=== PATIENT | female | born 1950 | race Caucasian/White ===

== ENCOUNTER 2021-11-06 13:21 | Outpatient (CLI) | payer MEDICARE, SELFPAY ==
[2021-11-06 09:52] LABS: Albumin* 4.5 g/dL (3.3-5.0)
[2021-11-06 09:53] LABS: Chloride* 104 mmol/L (96-114); Sodium* 138 mmol/L (135-149)
[2021-11-06 09:55] LABS: Bilirubin Total* 0.8 mg/dL (0.1-1.5); Carbon Dioxide* 23 mmol/L (20-32); Cholesterol* 249 mg/dL (90-199); Creatinine* 0.8 mg/dL (0.5-1.5); Estimated Glomerular Filt Rate 79 ml/min; Total Protein* 7.2 g/dL (6.0-8.3)
[2021-11-06 09:56] LABS: Alanine Aminotransferase* 24 U/L (4-35); Alkaline Phosphatase* 78 U/L (40-150); Aspartate Amino Transferase* 22 U/L (12-35); Blood Urea Nitrogen* 17 mg/dL (7-30); Calcium* 10.2 mg/dL (8.4-10.6); Glucose* 114 mg/dL (60-115); HDL Cholesterol* 45 mg/dL (>=50); LDL Cholesterol Calculated 170 mg/dL (<100); Triglycerides* 172 mg/dL (40-149)
[2021-11-06 10:12] LABS: Vitamin D 25 Hydroxy* 58 ng/mL (30-80)
== END 2021-11-06 13:22 | disposition home or self-care (01) ==
PROVIDERS: PCP Family Medicine; Visit Provider Family Medicine
DX: E78.5 Hyperlipidemia, unspecified (principal); I10 Essential (primary) hypertension; M85.80 Other specified disorders of bone density and structure, unspecified site; R73.03 Prediabetes; E66.9 Obesity, unspecified
CPT/HCPCS: 80053; 80061; 82306

== ENCOUNTER 2021-12-29 13:00 | Outpatient (CLI) | payer MEDICARE, SELFPAY ==
--- OUTSIDE RECORDS SUMMARY | 2021-12-29 13:03 | XMS_ITS | Encounter Summary ---
:1950 Author Organization [facility] Address [address] [place] [address] Care Team Providers Name Role Phone Elsewhere, Pcp Primary Care Provider Unavailable Reason for Visit Appointment Request (Routine) - Closed Specialty Diagnoses / Procedures Referred By Contact Refer red To Contact Family Medicine Referral ID Status Reason Start Date Expiration Date Visits Requ ested Visits Authorized [id number] Closed 01/23/2018 01/23/2019 1 Encounter Details Date Type Department Care Team Description 02/02/2018 Nurse Only Department of Family Chayo Cesar, P.AKayleigh-CKayleigh [address] [place] [address] Medicine, [place] Jimi Gutierrez, L.P.N. [address] [place] [id number] Clinic, in [address] [phone] Social History Tobacco Use Types Packs/Day Years Used Date Smoking Tobacco: Never Smokeless Tobacco: Never Alcohol Habits Answer Date Recorded How often do you have a drink containing alcohol? Monthly or less 03/11/2020 How many drinks containing alcohol do you have on a Not aske d typical day when you are drinking? How often do you have six or more drinks on one Not asked occasion? Social Isolation Answer Date Recorded In a typical week, how many times do you More than three stacy es a week 03/11/2020 talk on the phone with family, friends, or neighbors? How often do you get together with friends Patient refused 03/11/2020 or relatives? How often do you attend jain or Patient refused 2020 yazidi services? Do you belong to any clubs or Patient refused 03/11/2020 organizations such as jain groups, unions, [employer] or athletic groups, or school groups? How often do you attend meetings of the Patient refused 03/11/2020 clubs or organizations you belong to? Are you now , , , Never 03/11/2020 , never or living with a partner? Stress Answer Date Recorded Do you feel stress - tense, restless, nervous, or To some ex tent 03/11/2020 anxious, or unable to sleep at night because your mind is troubled all the time - these days? Sex Assigned at Date Recorded Female 10/02/2021 8:58 AM CDT documented as of this encounter Procedure Notes Jimi Gutierrez, L.P.N. - 02/02/2018 1:30 PM CSTAssociated Order(s): SUTURE REMOVAL Post-Procedure Diagnose(s): Tumor Skin Uncertain Behavior Suture Removal Date/Time: 02/02/2018 1:09 PM Performed by: JIMI GUTIERREZ Authorized by: ANDREW CESAR Pre-procedure details: Sutures were placed at [facility] facility: yes Indicaton: scheduled suture removal Location: Lower extremity Lower extremity location: Foot Foot location: Right foot Procedure details: Wound appearance: No signs of infection Number of sutures removed: 2 Post-procedure details: Procedure completed successfully: yes Complications: no immediate complications Post-removal: Band-Aid applied T OF SALE ASSOCIATE documented in this encounter Plan of Treatment Not on filedocumented as of this encounter Procedures Procedure Name Priority Date/Time Associated Diagnosis Comme nts SUTURE REMOVAL Routine 02/02/2018 1:30 PM Tumor Skin Uncertain Results for this POINT OF SALE ASSOCIATE Behavior procedure are i n the results section . documented in this encounter Results SUTURE REMOVAL (02/02/2018 1:30 PM POINT OF SALE ASSOCIATE) Narrative [facility] - 02/02/2018 1:30 PM POINT OF SALE ASSOCIATE Jimi Gutierrez, L.P.N. ? 02/02/2018 ??1:15 PM Suture Removal Date/Time: 02/02/2018 1:09 PM Performed by: JIMI GUTIERREZ Authorized by: ANDREW CESAR Pre-procedure details: ??Sutures were placed at [facility]: yes ?Indicaton: scheduled suture removal ?Location: ??Lower extremity ??Lower extremity location: ??Foot ??Foot location: ??Right foot Procedure details: ??Wound appearance: ??No signs of infec tion ??Number of sutures removed: ??2 Post-procedure details: ??Procedure completed successfully: yes ?Complications: no immediate complicat ions ?Post-removal: ??Band-Aid applied Andrew Cesar P.A.-C. PROCEDURE/MINOR SURGICAL ORD ERABLES Performing Organization Address City/State/ZIP Code Phon e Number MMODAL MMODAL NA documented in this encounter Visit Diagnoses Diagnosis Tumor Skin Uncertain Behavior documented in this encounter Care Teams Industrial Renderer Relationship Specialty Start Date End Date Elsewhere, Pcp PCP - General Family Medicine 02/02/18 documented as of this encounter
--- OUTSIDE RECORDS SUMMARY | 2021-12-29 13:03 | XMS_ITS | Encounter Summary ---
:1950 Author Organization [facility] Address [address] [place] [address] Care Team Providers Name Role Phone Elsewhere, Pcp Primary Care Provider Unavailable Reason for Visit Reason Comments Skin Check Appointment Request (Routine) - Closed Specialty Diagnoses / Procedures Referred By Contact Refer red To Contact Dermatology Referral ID Status Reason Start Date Expiration Date Visits Requ ested Visits Authorized [id number] Closed 07/27/2021 07/27/2022 1 1 Encounter Details Date Type Department Care Team Description 10/06/2021 Office Visit Department of Enriqueta Yu, Keratosis Actinic (Primary Dx); Dermatology in [place] Tumor Skin Uncertain Behavior; [place], [place] [address] [facility] Nevi Multiple; [address] [place] [address] [place] [phone] Social History Tobacco Use Types Packs/Day Years [...] or relatives? How often do you attend mormonism or Patient refused 2020 sikh services? Do you belong to any clubs or Patient refused 03/11/2020 organizations such as mormonism groups, unions, fraternal or athletic groups, or school groups? How [...] troubled all the time - these days? Education Answer Date Recorded What is the highest level of school Master's degree (e.g., M A, MS, 03/11/2020 you have completed or the highest Albertina, MEd, ETHANOL OPERATOR, WILLIAM) degree you have received? Sex Assigned at Date Recorded Female 10/02/2021 8:58 AM CDT documented as of this encounter Progress Notes Enriqueta Yu M.D. - 10/06/2021 1:30 PM CDT SUBJECTIVE CHIEF COMPLAINT / REASON FOR VISIT Full skin cancer screening HISTORY OF PRESENT ILLNESS Zuleika Chand is a pleasant 70 y.o. female who presents for a full skin cancer screening. The patient was last seen by me in Dermatology clinic on 03/10/21. She denies a personal history of skin cancer or family history for melanoma. She uses sunscreen. She denies any new or changing lesions today. MEDICAL HISTORY Negative for skin cancer FAMILY HISTORY Negative for melanoma OBJECTIVE PHYSICAL EXAMINATION General: Awake, alert, in no acute distress, and with appropriate affect. Eyes: No scleral injection or icterus. No eyelid abnormalities. Lymph: No lower extremity edema. Skin: I have examined the scalp, face, neck, chest, abdomen, back, bilateral upper extremities, and bilateral lower extremities. My scribe (Nubia) served as a gas distribution plant operator for the entirety of the exam. Examination of the face, trunk and extremities reveals multiple benign-appearing nevi, lentigines and seborrheic keratoses. Examination of the left lower cheek reveals actinic keratoses x 2. Examination of the left upper cheek (mid) reveals a 8 x 5 mm erythematous scaly patch, rule out basal cell carcinoma vs squamous cell carcinoma. Examination of the left dorsal wrist reveals a 5.5 x 7.5 mm light-brown nevus with slight asymmetry and slight jagged borders. Examination of the right medial thigh reveals a small hemorrhagic crust. I recommend applying Vaseline. Follow up if not resolving. ASSESSMENT / PLAN #1 Left lower cheek: Actinic keratosis x 2 Given the precancerous nature of this lesion(s), treatment is medically indicated. After discussion of the risks, benefits and alternatives to treatment with cryotherapy, informed consent was obtained.We treated a total of two lesion(s) with two 10-second freeze-thaw cycles of liquid nitrogen cryotherapy. The patient tolerated the procedure well. Aftercare instructions were provided in written and verbal form to the patient. Should any of these lesions recur, the patient should return for biopsy orfurther evaluation. Follow up in 1-2 months for recheck if these areas do not complete resolve. #2 Left upper cheek (mid): Rule out basal cell carcinoma vs squamous cell carcinoma We recommend a shave biopsy of the left upper cheek (mid). Photograph taken today with patient's verbal consent. We will correspond as to the results and if any further treatment is needed. PROCEDURAL PAUSE: Procedural pause conducted to verify: correct patient identity, procedure to be performed, and as applicable, correct side and site, correct patient position, and availability of implants, special equipment or special requirements. PROCEDURE DETAILS: Shave biopsy. We explained the potential diagnosis and recommended that we obtain a biopsy. The risks and benefitsof the procedure were discussed, and the patient consented to these procedures. The patient denies any allergies to local anesthetics. Using 1% lidocaine with epinephrine for local anesthesia, a shave biopsy was obtained from the left upper cheek (mid). Biopsy submitted to Dermatopathology for H&E. Special stains will be performed as indicated. The bleeding was well controlled with application ofaluminum chloride. Dressing was applied, and wound care instructions were explained. Biopsy results and any further recommendations will be communicated to the patient by letter. Patient given [id number]. Discussed the risks, benefits, alternatives, and the necessity of other members of the healthcare team participating in the procedure. All questions answered and consent given. #3 Face, trunk and extremities: Multiple nevi and lentigines The ABCDE criteria for melanoma was reviewed with the patient. None of the patient's nevi reach the clinical threshold for biopsy. I recommend continued sun protection, self-skin examinations, and observation. Should any of the patient's nevi change in size, color, texture, or shape or develop symptoms such as itching or bleeding, I recommend an immediate return visit for reassessment. #4 Face, trunk and extremities: Seborrheic keratosis The benign nature of the skin lesion(s) was discussed with the patient. No treatment is required. I recommend continued observation. Should this lesion change in size, color, texture, or shape or develop symptoms such as itching or bleeding, I recommend an immediate return visit for reassessment. PATIENT EDUCATION: Ready to learn. No apparent learning barriers were identified. Learning preferences include listening. Explained diagnosis and treatment plan; patient/guardian of patient expressed understanding of thecontent. By signing my name below, I, Nubia Sterling, attest that this documentation has been prepared under the direction and in the presence of Enriqueta Yu M.D. Electronically Signed: patricio Crowder. 10/05/2021. 8:04 AM CDT. I, Enriqueta Yu M.D., personally performed the services described in this documentation. All medical record entries made by the scribe were at my direction and in my presence. I have reviewed the chart and discharge instructions (if applicable) and agree that the record reflects my personal performance and is accurate and complete. Enriqueta Yu M.D. documented in this encounter Miscellaneous Notes Result Encounter Note - Enriqueta Yu M.D. - 10/13/2021 12:16 PM CDT Left upper mid cheek: Actinic keratoses already treated letter [place] patient. Please send letter documented in this encounter Plan of Treatment Not on filedocumented as of this encounter Procedures Procedure Name Priority Date/Time Associated Comments Diagnosis DERMATOPATHOLOGY CONSULT Routine 10/06/2021 1:58 Tumor Skin Results for this PM CDT Uncertain Behavior procedure are in the results section. documented in this encounter Results Dermatopathology Consult (10/06/2021 1:58 PM CDT) Component Value Ref Test Analysis Performed At [facility] gist Range Method Time Signature 10/12/2021 [facility] 1:37 PM CDT Participated in Carloz Rojo 10/12/2021 [facility] the Interpretation [place] - 1:37 PM CDT Pathology Fellow Report Jasper Houston 10/12/2021 [facility] electronically [place] 1:37 PM CDT signed by Gross Description: Received in formalin labeled with the patient's name, 10/12/2021 [facility] medical record number, and left upper cheek-mid is a 0.6 1:37 PM CDT x 0.3 x 0.1 cm pale-warner skin shave biopsy. No discrete lesion is grossly identified on the skin surface. The specimen is submitted en toto in cassette A1. ??Grossed by AJB. Interpetation FINAL DIAGNOSIS 10/12/2021 [facility] A. ??DermPath Consult Wet Tissue; Left upper cheek, mid, 1:37 PM CDT Skin shave biopsy: ??Actinic keratosis Specimen (Source) Anatomical Collection Method Collection Time Re ceived Time Location / / Volume Laterality Skin (Left upper 10/06/2021 1:58 PM cheek) CDT Narrative This result has an attachment that is no t available. Enriqueta Yu M.D. LAB PATH DERM ORDERABLES Performing Organization Address City/State/ZIP Code Phon e Number [facility] - [address] [place], [place] [address] [place] [address] [facility] [address] documented in this encounter Visit Diagnoses Diagnosis Keratosis Actinic - Primary Tumor Skin Uncertain Behavior Nevi Multiple Keratosis Seborrheic documented in this encounter Care Teams Furnace Setter Relationship Specialty Start Date End Date Elsewhere, Pcp PCP - General Family Medicine 02/02/18 documented as of this encounter
--- OUTSIDE RECORDS SUMMARY | 2021-12-29 13:03 | XMS_ITS | Encounter Summary ---
:1950 Author Organization [facility] Address [address] [place] [address] Care Team Providers Name Role Phone Elsewhere, Pcp Primary Care Provider Unavailable Reason for Visit Reason Comments Follow-up Nevus left dorsal wrist, 6mo nth Encounter Details Date Type Department Care Team Description 03/10/2021 Office Visit Department of Enriqueta Yu, Keratosis Actinic (Primary Dx); Dermatology in [place] [address] [phone] Social History Tobacco Use Types Packs/Day Years [...] or relatives? How often do you attend pentecostal or Patient refused 2020 muslim services? Do you belong to any clubs or Patient refused 03/11/2020 organizations such as pentecostal groups, unions, fraternal or athletic groups, or [...] have completed or the highest Albertina, MEd, COOKIE BREAKER, WILLIAM) degree you have received? Sex Assigned at Date Recorded Female 10/02/2021 8:58 AM CDT documented as of this encounter Progress Notes Enriqueta Yu M.D. - 03/10/2021 1:15 PM CST SUBJECTIVE CHIEF COMPLAINT / REASON FOR VISIT Recheck nevus x 1 Lesion x 1 HISTORY OF PRESENT ILLNESS Zuleika Chand is a pleasant 70 y.o. female who presents for a recheck of a nevus involving the left dorsal wrist. The patient was last seen by me in Dermatology clinic on 08/26/20 for a full skin cancer screening. She denies a personal history of skin cancer or family history for melanoma. She uses haider nscreen. She would also like us to evaluate a lesion involving the cheek today. MEDICAL HISTORY Negative for skin cancer FAMILY HISTORY 1. Negative for melanoma 2. Probable non-melanoma skin cancer in mother OBJECTIVE PHYSICAL EXAMINATION General: Awake, alert, in no acute distress, and with appropriate affect. Skin: Limited skin exam done today. Examination of the right cheek reveals 3 actinic keratoses. Examination of the left dorsal wrist reveals a 5 x 8 mm light-brown nevus with slight asymmetry and slight jagged borders but looks benign on clinical exam and dermoscopy. Examination of the face reveals multiple benign appearing lentigines and a few seborrheic keratoses. ASSESSMENT / PLAN #1 Right cheek: Actinic keratosis x 3 Given the precancerous nature of this lesion(s), treatment is medically indicated. After discussion of the risks, benefits and alternatives to treatment with cryotherapy, informed consent was obtained.We treated a total of three lesion(s) with two 5-second freeze-thaw cycles of liquid nitrogen cryotherapy. The patient tolerated the procedure well. Aftercare instructions were provided in written and verbal form to the patient. Should any of these lesions recur, the patient should return for biopsy or further evaluation. Follow up in 1-2 months for recheck if these areas do not complete resolve. #2 Left dorsal wrist: Benign nevus The ABCDE criteria for melanoma was reviewed with the patient. This nevus does not reach the clinical threshold for biopsy. I discussed potential removal but because its near the bone and my low index of suspicion for this lesion being atypical, I discussed that I would prefer not to remove it. The patient is in agreement with this plan. I recommend continued sun protection, self-skin examinations, and observation. Should any of the patient's nevi change in size, color, texture, or shape or develop symptoms such as itching or bleeding, I recommend an immediate return visit for reassessment. Follow up in 6 months for a recheck of the stated lesion(s). #3 Face: Lentigines The benign nature of the skin lesion(s) was discussed with the patient. No treatment is required. I recommend continued observation. Should this lesion change in size, color, texture, or shape or develop symptoms such as itching or bleeding, I recommend an immediate return visit for reassessment. #4 Face: Seborrheic keratosis The benign nature of the [...] of thecontent. By signing my name below, Benedict, Nubia Sterling, attest that this documentation has been prepared under the direction and in the presence of Enriqueta Yu M.D. Electronically Signed: patricio Crowder. 03/10/2021. 1:27 PM LAB ASSISTANT. Enriqueta Mcmullen M.D., personally performed the services described in this documentation. All medical record entries made by the yueibe were at my direction and in my presence. I have reviewed the chart and discharge instructions (if applicable) and agree that the record reflects my personal performance and is accurate and complete. Enriqueta Yu M.D. Electronically Signed: patricio Crowder. 03/10/2021. 12:10 PM LAB ASSISTANT. I, Enriqueta Yu M.D., personally performed the services described in this documentation. All medical record entries made by the yueibe were at my direction and in my presence. I have reviewed the chart and discharge instructions (if applicable) and agree that the record reflects my personal performance and is accurate and complete. Enriqueta Yu M.D. ASSISTANT documented in this encounter Plan of Treatment Not on filedocumented as of this encounter Visit Diagnoses Diagnosis Keratosis Actinic - Primary Nevi Multiple documented in this encounter Care Teams Glue Machine Operator Relationship Specialty Start Date End Date Elsewhere, Pcp PCP - General Family Medicine 02/02/18 documented as of this encounter
--- OUTSIDE RECORDS SUMMARY | 2021-12-29 13:03 | XMS_ITS | Encounter Summary ---
:1950 Author Organization [facility] Address [address] [place] [address] Care Team Providers Name Role Phone Elsewhere, Pcp Primary Care Provider Unavailable Encounter Details Date Type Department Care Team Description 04/16/2020 Clinical Communication Department of [facility]te Yu, Medicine, [facility], in [address] [address] [place], [place] [phone] [address] (Work) [phone] Social History Tobacco Use Types Packs/Day Years [...] or relatives? How often do you attend methodist or Patient refused 2020 synagogue services? Do you belong to any clubs or Patient refused 03/11/2020 organizations such as methodist groups, unions, fraternal or athletic groups, or [...] have completed or the highest Albertina, MEd, CATTLE KILLER, WILLIAM) degree you have received? Sex Assigned at Date Recorded Female 10/02/2021 8:58 AM CDT documented as of this encounter Miscellaneous Notes Telephone Encounter - Hugo Aguilar L.P.N. - 04/16/2020 2:41 PM CST Call to patient. Confirmed will be due for skin check, short appointment in June. SMAKER OR TAILOR Telephone Encounter - Denise Lafleur - 04/16/2020 1:47 PM CST Reason for Communication: Pt called, she stated she is due for an appt with Dr Yu but is not sure if she needs short or long appt. Current Can Nursing/Provider leave a detailed message?: na Did the patient refuse triage through Nurse line? (for symptom based concerns): na Action Needed: Please check and call pt back Name of Medication (if relevant): SMAKER OR TAILOR documented in this encounter Plan of Treatment Not on filedocumented as of this encounter Visit Diagnoses Not on filedocumented in this encounter Care Teams Public Health Technologist Relationship Specialty Start Date End Date Elsewhere, Pcp PCP - General Family Medicine 02/02/18 documented as of this encounter
--- OUTSIDE RECORDS SUMMARY | 2021-12-29 13:03 | XMS_ITS | Encounter Summary ---
:1950 Author Organization [facility] Address [address] [place] [address] Care Team Providers Name Role Phone Elsewhere, Pcp Primary Care Provider Unavailable Reason for Visit Reason Comments Skin Check Appointment Request (Routine) - Closed Specialty Diagnoses / Procedures Referred By Contact Refer red To Contact Family Medicine Referral ID Status Reason Start Date Expiration Date Visits Requ ested Visits Authorized [id number] Closed 12/31/2019 12/30/2020 1 1 Encounter Details Date Type Department Care Team Description 03/11/2020 Office Visit Department of Enriqueta Yu, Keratosis Actinic (Primary Dx); Dermatology in [place] Keratosis Seborrheic; [place], [place] [address] [phone] Social History Tobacco Use Types Packs/Day Years [...] or relatives? How often do you attend jehovah's witness or Patient refused 2020 yarsanism services? Do you belong to any clubs or Patient refused 03/11/2020 organizations such as jehovah's witness groups, unions, fraternal or athletic groups, or [...] have completed or the highest Albertina, MEd, PATIENT SCHEDULING COORDINATOR, WILLIAM) degree you have received? Sex Assigned at Date Recorded Female 10/02/2021 8:58 AM CDT documented as of this encounter Progress Notes Enriqueta Yu M.D. - 03/11/2020 1:45 PM CST SUBJECTIVE CHIEF COMPLAINT / REASON FOR VISIT Recheck actinic keratosis HISTORY OF PRESENT ILLNESS Ms. Zuleika Chand is a 69 y.o. female who presents today for a recheck of actinic keratosis involving her face. The patient was last seen by me in Dermatology clinic on 07/02/2019 and at that time wetreated 7 AKs involving the face and forearm with cryotherapy. The patient denies a personal historyof skin cancer or family history for melanoma. Additionally, she would like an evaluation of a lesion involving her right azar. Allergies Allergen Reactions ??? Amoxicillin Other (see comments) MEDICAL HISTORY No history of skin cancer FAMILY HISTORY No family history for melanoma Probable non melanoma skin cancer in mother OBJECTIVE PHYSICAL EXAMINATION General: Awake, alert, in no acute distress, and with appropriate affect. Skin: Limited skin exam done today involving face, distal arms, hands. Examination today reveals a total of 5 AKs, includin involving the right arm, 2 involving the left distal arm, 1 involving the distal nasal bridge. Examination of the face, distal arms, and hands, reveals multiple benign appearing nevi and lentigines and seborrheic keratosis. Examination of the left dorsal wrist reveals a 5 x 8 mm brown macule with slight irregular borders compatible with a benign nevus. Examination of the right lateral azar reveals a SK vs LK. ASSESSMENT / PLAN #1 Right arm, left distal arm: Actinic keratosis x 5 lesions Given the precancerous nature of this lesion(s), treatment is medically indicated. After discussion of the risks, benefits and alternatives to treatment with cryotherapy, informed consent was obtained.We treated a total of 5 lesion(s) with two 10-second freeze-thaw cycles of liquid nitrogen cryotherapy. The patient tolerated the procedure well. Aftercare instructions were provided in written and verbal form to the patient. Should any of these lesions recur, the patient should return for biopsy or further evaluation. Discussed the risks, benefits, alternatives, and the necessity of other members ofthe healthcare team participating in the procedure. All questions answered and consent given. #2 Face, distal arms, hands: Benign appearing nevi and lentigines The ABCDE criteria for [...] return visit for reassessment. Follow up in 4months for a full skin cancer screening exam. #3 Face, distal arms, hands, right lateral azar: Seborrheic keratosis The benign nature of the skin lesion(s) was discussed with the patient. No treatment is required. I recommend continued observation. Should symptoms or changes develop related to this condition, I would recommend a return visit for reassessment. PATIENT EDUCATION: Ready to learn. No apparent learning barriers were identified. Learning preferences include listening. Explained diagnosis and treatment plan; patient/guardian of patient expressed understanding of thecontent. By signing my name below, I, Tracey Heredia, attest that this documentation has been prepared underthe direction and in the presence of Enriqueta Yu M.D. Electronically Signed: patricio Avina. 03/11/2020 Enriqueta Mcmullen M.D., personally performed the services described in this documentation. All medical record entries made by the scribe were at my direction and in my presence. I have reviewed the chart and discharge instructions (if applicable) and agree that the record reflects my personal performance and is accurate and complete. Enriqueta Yu M.D. 03/11 ESS FLOOR ATTENDANT documented in this encounter Plan of Treatment Not on filedocumented as of this encounter Visit Diagnoses Diagnosis Keratosis Actinic - Primary Keratosis Seborrheic Nevi Multiple documented in this encounter Care Teams Curing Pickling Packer Relationship Specialty Start Date End Date Elsewhere, Pcp PCP - General Family Medicine 02/02/18 documented as of this encounter
--- OUTSIDE RECORDS SUMMARY | 2021-12-29 13:03 | XMS_ITS | Encounter Summary ---
:1950 Author Organization [facility] Address [address] [place] [address] Care Team Providers Name Role Phone Unavailable Primary Care Provider Unavailable Encounter Details Date Type Department Care Team Description 01/23/2018 Ancillary Procedure Department of Dermatology Social History Tobacco Use Types Packs/Day Years [...] or relatives? How often do you attend islam or Patient refused 2020 mu-ism services? Do you belong to any clubs or Patient refused 03/11/2020 organizations such as islam groups, unions, fraternal or athletic groups, or [...] AM CDT documented as of this encounter Plan of Treatment Not on filedocumented as of this encounter Procedures Procedure Name Priority Date/Time Associated Comments Diagnosis DERMATOLOGY IMAGE Routine 01/23/2018 3:05 PM Resu lts for this EXAM COMMUNITY ADMINISTRATOR procedure are i n the results section. documented in this encounter Results DERMATOLOGY IMAGE EXAM (01/23/2018 3:05 PM COMMUNITY ADMINISTRATOR) Specimen (Source) Anatomical Collection Method Collection Time Re ceived Time Location / / Volume Laterality 01/23/2018 3:03 PM COMMUNITY ADMINISTRATOR Narrative [facility] - 01/23/2018 3:06 PM COMMUNITY ADMINISTRATOR This order has been created and auto-finalized to support the import of images acquired without order. The clini medina documentation to support these images can be found on the encounter santi t produced images. Provider Not In System IMG NON RAD IMAGING PROCEDUR ES Performing Organization Address City/State/ZIP Code Phon e Number [facility] NA documented in this encounter Visit Diagnoses Not on filedocumented in this encounter
--- OUTSIDE RECORDS SUMMARY | 2021-12-29 13:03 | XMS_ITS | Encounter Summary ---
:1950 Author Organization [facility] Address [address] [place] [id number] Care Team Providers Name Role Phone Elsewhere, Pcp Primary Care Provider Unavailable Reason for Referral Outpatient (Routine) - Closed Specialty Diagnoses / Procedures Referred By Contact Refer red To Contact Dermatology Enriqueta Yu M.D . [facility] [address] [place] [phone] Referral ID Status Reason Start Date Expiration Date Visits Requ ested Visits Authorized [id number] Closed 03/26/2019 03/25/2020 1 1 ANGI TRIBUNAL MEMBER Reason for Visit Reason Comments Follow-up Outpatient (Routine) - Closed Specialty Diagnoses / Procedures Referred By Contact Refer red To Contact Dermatology Enriqueta Yu M.D . [facility] [address] [place] [phone] Referral ID Status Reason Start Date Expiration Date Visits Requ ested Visits Authorized [id number] Closed 11/20/2018 11/20/2019 1 1 Encounter Details Date Type Department Care Team Description 03/26/2019 Office Visit Department of Enriqueta Yu (Primary Dx); Dermatology in [place] M.D. Keratosis Actinic; [place], [place] [address] [facility] Telangiectasia [address] [place] [phone] Social History Tobacco Use Types Packs/Day Years [...] or relatives? How often do you attend christianity or Patient refused 2020 hinduism services? Do you belong to any clubs or Patient refused 03/11/2020 organizations such as christianity groups, unions, fraternal or athletic groups, or [...] encounter Progress Notes Enriqueta Yu M.D. - 03/26/2019 1:30 PM CST SUBJECTIVE CHIEF COMPLAINT/REASON FOR VISIT Recheck lesion involving left dorsal wrist HISTORY OF PRESENT ILLNESS Zuleika Chand is a 68 y.o. female who presents for recheck of a lesion involving the left dorsal wrist. During our last visit on 11/20/18, the lesion was felt to be compatible with a benign-appearing nevus. The patient denies a personal history of skin cancer or family history for melanoma. Her father has had probable non-melanoma skin cancer. She uses sunscreen. She has concerns today for a few lesions involving the nose and left cheek. Allergies Allergen Reactions ??? Amoxicillin Other (see comments) MEDICAL HISTORY Negative for skin cancer FAMILY HISTORY 1. Negative for melanoma 2. Probable non-melanoma skin cancer in father OBJECTIVE PHYSICAL EXAMINATION General: Awake, alert, in no acute distress, and with appropriate affect. Skin: Examination of the left dorsal wrist reveals a 5.5 mm x 5 mm brown nevus with slight asymmetry. Examination of the left distal nasal bridge reveals some telangiectasia but no evidence for a lesion. Examination of the left cheek reveals actinic keratoses x2. Examination of the face reveals some benign- appearing nevi and lentigines. ASSESSMENT/PLAN #1 Left cheek: Actinic keratosis x2 ?? CONSENT Discussed the risks, benefits, alternatives, and the necessity of other members of the healthcare team participating in the procedure. All questions answered and consent given. ?? PROCEDURE INFORMATION Given the precancerous nature of this lesion(s), treatment is medically indicated. After discussion of the risks, benefits and alternatives to treatment with cryotherapy, informed consent was obtained.??We treated a total of 2 lesion(s) with two 5-10-second freeze-thaw cycles of liquid nitrogen cryothe rapy. The patient tolerated the procedure well. Aftercare instructions were provided in written and verbal form to the patient.??Should any of these lesions recur, the patient should return for biopsy or further evaluation. Follow up in 1-2 months for recheck if these areas do not complete resolve. #2 Face: Multiple nevi and lentigines The ABCDE criteria for melanoma was reviewed with the patient. None of the patient's nevi reach the clinical threshold for biopsy. We will monitor the lesion involving the left dorsal wrist. I recommend continued sun protection, self-skin examinations, and observation. Should any of the patient's nevichange in size, color, texture, or shape or develop symptoms such as itching or bleeding, I recommend an immediate return visit for reassessment. Follow up in 3-4 months for a recheck of the stated lesion as well as a full skin cancer screening, or immediately if any new or changing lesions are noted. #3 Left distal nasal bridge: Telangiectasia, no lesion present On clinical exam today, there is some telangiectasia involving the left distal nasal bridge but no evidence for a lesion. The benign nature of the condition(s) was discussed with the patient. No treatment is required. I recommend continued observation. Should symptoms or changes develop related to this condition, I would recommend a return visit for reassessment. PATIENT EDUCATION: Ready to learn. No apparent learning barriers were identified. Learning preferences include listening. Explained diagnosis and treatment plan; patient/guardian of patient expressed understanding of thecontent. By signing my name below, I, Eusebio Sibley, attest that this documentation has been prepared under thedirection and in the presence of Enriqueta Yu M.D. Electronically Signed: patricio Rosales. 03/26/2019. 1:42 PM WAITANGI TRIBUNAL MEMBER. I, Enriqueta Yu M.D., personally performed the services described in this documentation. All medical record entries made by the scribe were at my direction and in my presence. I have reviewed the chart and discharge instructions (if applicable) and agree that the record reflects my personal performance and is accurate and complete. Enriqueta Yu M.D. . 03/26/2019. 1:47 PM WAITANGI TRIBUNAL MEMBER. ANGI TRIBUNAL MEMBER documented in this encounter Plan of Treatment Scheduled Referrals Name Type Priority Associated Order Schedule Diagnoses Dermatology office Outpatient Referral Routine Ex pected: visit (clinic) 03/26/2019 (Approximate), Expires: 03/26/2022 documented as of this encounter Visit Diagnoses Diagnosis Nevi Multiple - Primary Keratosis Actinic Telangiectasia documented in this encounter Care Teams Impregnator Operator Relationship Specialty Start Date End Date Elsewhere, Pcp PCP - General Family Medicine 02/02/18 documented as of this encounter
--- OUTSIDE RECORDS SUMMARY | 2021-12-29 13:03 | XMS_ITS | Encounter Summary ---
:1950 Author Organization [facility] Address [address] [place] [address] Care Team Providers Name Role Phone Elsewhere, Pcp Primary Care Provider Unavailable Encounter Details Date Type Department Care Team Description 04/16/2020 Orders Only [facility] PCP [facility] Sa tomy Burns M.D. [address] [place], [place] [phone] (Wo rk) Social History Tobacco Use Types Packs/Day Years [...] attend jehovah's witness or Patient refused 2020 latter day services? Do you belong to any clubs [...] highest level of school Master's degree (e.g., Mick Unger, MS, 03/11/2020 you have completed or the highest Albertina, MEd, DIETARY DIRECTOR, WILLIAM) degree you have received? Sex Assigned at Date Recorded Female 10/02/2021 8:58 AM CDT documented as of this encounter Plan of Treatment Not on filedocumented as of this encounter Visit Diagnoses Not on filedocumented in this encounter Care Teams Billiard Player Relationship Specialty Start Date End Date Elsewhere, Pcp PCP - General Family Medicine 02/02/18 documented as of this encounter
--- OUTSIDE RECORDS SUMMARY | 2021-12-29 13:03 | XMS_ITS | Encounter Summary ---
:1950 Author Organization [facility] Address [address] [place] [address] Care Team Providers Name Role Phone Elsewhere, Pcp Primary Care Provider Unavailable Encounter Details Date Type Department Care Team Description 10/06/2021 Ancillary Procedure Department of Dermatology Social History [...] or relatives? How often do you attend episcopal or Patient refused 2020 hoahaoism services? Do you belong to any clubs or Patient refused 03/11/2020 organizations such as episcopal groups, unions, fraternal or athletic groups, or [...] level of school Master's degree (e.g., Mick Ugner, , 03/11/2020 you have completed or the highest Albertina, MEd, TUBE DRAWER, WILLIAM) degree you have received? Sex Assigned at Date Recorded Female 10/02/2021 8:58 AM CDT documented as of this encounter Plan of Treatment Not on filedocumented as of this encounter Procedures Procedure Name Priority Date/Time Associated Comments Diagnosis DERMATOLOGY IMAGE Routine 10/06/2021 2:03 PM Resu lts for this EXAM CDT procedure are i n the results section. documented in this encounter Results Cheek, left 11 13 25 27 37-Dermatology Image Exam (10/06/2021 2:03 PM CDT) Specimen (Source) Anatomical Collection Method Collection Time Re ceived Time Location / / Volume Laterality 10/06/2021 2:01 PM CDT Narrative [facility] - 10/06/2021 2:03 PM CDT This order has been created and auto-finalized [...] on filedocumented in this encounter Care Teams Yarder Puncher Relationship Specialty Start Date End Date Elsewhere, Pcp PCP - General Family Medicine 02/02/18 documented as of this encounter
--- OUTSIDE RECORDS SUMMARY | 2021-12-29 13:03 | XMS_ITS | Clinical Summary ---
:1950 Author Organization [facility] Address [address] [place] [address] Care Team Providers Name Role Phone Elsewhere, Pcp Primary Care Provider Unavailable Source Comments Patient records contain information from all sites at [facility]. For routine questions regarding patient records, call [phone] during business hours, M-F 8:00 AM - 5:00 PM Central Time. Record requests for emergency care only can be directed to [phone] at any time.[facility] Allergies Active Allergy Reactions Severity Noted Date Comments Amoxicillin Other (see comments) 04/14/2015 Animal Dander Other (see comments) 12/08/2020 Mold Headache 12/08/2020 Medications Medication Sig Dispensed Refills Start Date End Date Status calcitonin, salmon, 200 Units daily. 8 12/22/2017 Active (MIACALCIN) 200 unit/actuation nasal spray chlorthalidone Take 25 mg by 2 01/10/2018 Active (HYGROTEN) 25 mg tablet mouth every other day. omeprazole (PriLOSEC) 20 3 01/10/[address] capsule calcium carb/vit Take 1 tablet by 0 04/14/2015 Active D3/minerals mouth daily. (CALCIUM-VITAMIN D ORAL) multivitamin tablet Take 1 tablet by 0 Active mouth daily. lisinopril Take 20 mg by 2 04/13/2018 Acti ve (PRINIVIL,ZESTRIL) 20 mg mouth every tablet other day. co-enzyme Q-10 30 mg Take 30 mg by 0 Active capsule mouth daily. Encounters Date Type Specialty Care Team Description 10/06/2021 Ancillary Procedure 10/06/2021 Office Visit Dermatology Enriqueta Yu, Keratosis A ctinic (Primary Dx); M.D. Tumor Skin Unce rtain Behavior; Nevi Multiple; Keratosis Sebor rheic from Last 3 Months Immunizations Name Administration Dates Next Due H1N1 All Forms 03/11/2009 HZV (ZOSTAVAX) 02/17/2012 Influenza (IM) Preservative Free 01/04/2012, 12/02/2010 Influenza, Injectable, Quadrivalent 01/13/2016 Influenza, Seasonal, Injectable 12/21/2012 Influenza, Unspecified 10/30/2008 PCV13 11/04/2016 PPSV23 11/10/2017 RZV (SHINGRIX) 04/03/2018 Td (Adult), adsorbed 03/01/2002, 02/11/1993 Tdap 01/22/2011 influenza high dose (65 years or older) (PF) 12/13/2017, 12/2016 Family History Medical History Relation Name Comments Skin cancer Mother Relation Name Status Comments Mother Social History Tobacco Use Types Packs/Day Years [...] or relatives? How often do you attend synagogue or Patient refused 2020 holiness services? Do you belong to any clubs or Patient refused 03/11/2020 organizations such as synagogue groups, unions, fraternal or athletic groups, or [...] have completed or the highest Albertina, MEd, DENTISTRY TEACHER, WILLIAM) degree you have received? Sex Assigned at Date Recorded Female 10/02/2021 8:58 AM CDT Last Filed Vital Signs Vital Sign Reading Time Taken Comments Blood Pressure 122/60 11/05/2015 11:06 AM CDT Pulse - - Temperature - - Respiratory Rate - - Oxygen Saturation - - Inhaled Oxygen Concentration - - Weight 99.6 kg (219 lb 9.3 oz) 11/05/2015 11:06 AM CDT Height - - Body Mass Index - - Plan of Treatment Health Maintenance Due Date Last Done Comments Bone Density Scan (Osteoporosis 1950 Screen) CT Colonography 1950 Cologuard 1950 Colonoscopy 1950 Colorectal Cancer Screening 1950 Creatinine Level 1950 FIT 1950 Fasting Glucose for Diabetes 1950 Screening Hepatitis C Screening 1950 Mammogram 1950 Potassium Level 1950 Sodium Level 1950 Depression Screening (Annual 02/14/2021 PHQ-2) Influenza Vaccine (#1) 2021 12/19/2020, 11/21/2019, 11/16/2019, Additional history exists DTaP,Tdap,and Td Vaccines (3 - Td 06/22/2028 06/22/2018, , or Tdap) 03/01/2002, Additional history exists Pneumococcal vaccine (65+ years) Completed 11/10/2017, Zoster Vaccines Completed 06/22/2018, 04/03/2018, 02/17/2012 Fall Risk Screen (Annual) Completed 03/10/2021 COVID-19 Vaccine Completed 11/25/2021, 05/23/2021, 12/16/2020, Additional history exists Medical Devices Implanted Type Area Perforating Machine Operator Device Shelf Model / Identifier Expiration Serial / Date Lot Hip Implant Hip Implant Right: Hip Knee Implant Knee Implant Right: Knee Procedures Procedure Name Priority Date/Time Associated Comments Diagnosis DERMATOLOGY IMAGE EXAM Routine 10/06/2021 2:03 Re sults for this PM CDT procedure are i n the results section. DERMATOPATHOLOGY CONSULT Routine 10/06/2021 1:58 Tumor Skin Results for this PM CDT Uncertain Behavior procedure are in the results section. from Last 3 Months Results Cheek, left 11 13 25 27 [...] RAD IMAGING PROCEDUR ES Performing Organization Address City/State/[facility] Code Phon e Number [facility] NA Dermatopathology Consult (10/06/2021 1:58 PM CDT) Component Value Ref Test Analysis Performed At [facility] gist Range Method Time Signature 10/12/2021 PDR 1:37 PM CDT Participated in Carloz Rojo 10/12/2021 [place] the Interpretation Belkys - 1:37 PM CDT Pathology Fellow Report Jasper Neal. 10/12/2021 [place] electronically Belkys Quinn 1:37 PM CDT signed by Gross Description: Received in formalin labeled with the patient's name, 10/12/2021 [place] medical record number, and left upper cheek-mid is a 0.6 1:37 PM CDT x 0.3 x 0.1 cm pale-warner skin shave biopsy. No discrete lesion is grossly identified on the skin surface. The specimen is submitted en toto in cassette A1. ??Grossed by AJB. Interpetation FINAL DIAGNOSIS 10/12/2021 [facility] A. ??DermPath Consult Wet Tissue; Left upper [...] Organization Address City/State/ZIP Code Phon e Number [facility] - [address] [place], [place] [address] [place] [address] [facility] [address] from Last 3 Months Insurance Payer Benefit Plan / Subscriber ID Effective Dates Phone Addre ss Type Group [facility] [id number] 2018-Flory [phone] [address] [address] [facility] MEDICARE PLAN t [address] [facility] [phone] Care Teams Wind Turbine Service Technician Relationship Specialty Start Date End Date Elsewhere, Pcp PCP - General Family Medicine 02/02/18
--- OUTSIDE RECORDS SUMMARY | 2021-12-29 13:03 | XMS_ITS | Encounter Summary ---
:1950 Author Organization [facility] Address [address] [place] [id number] Care Team Providers Name Role Phone Elsewhere, Pcp Primary Care Provider Unavailable Reason for Referral Outpatient (Routine) - Closed Specialty Diagnoses / Procedures Referred By Contact Refer red To Contact Dermatology Enriqueta Yu M.D . [facility] Region [address] [place] [address] [phone] Referral ID Status Reason Start Date Expiration Date Visits Requ ested Visits Authorized [id number] Closed 07/24/2018 07/24/2019 1 1 Scheduling Instructions Recheck skin lesion involving right uppe r lateral nasal bridge in 3 months Reason for Visit Reason Comments Skin Check Outpatient (Routine) - Closed Specialty Diagnoses / Procedures Referred By Contact Refer red To Contact Dermatology Enriqueta Yu M.D . [facility] Region [address] [place] [address] [phone] Referral ID Status Reason Start Date Expiration Date Visits Requ ested Visits Authorized [id number] Closed 04/24/2018 04/24/2019 1 1 Encounter Details Date Type Department Care Team Description 07/24/2018 Office Visit Department of Enriqueta Yu Nevi Multi ple (Primary Dermatology in [place] ) [address] [phone] Social History Tobacco Use Types Packs/Day Years [...] or relatives? How often do you attend congregational or Patient refused 2020 jain services? Do you belong to any clubs or Patient refused 03/11/2020 organizations such as congregational groups, unions, fraternal or athletic groups, or [...] encounter Progress Notes Enriqueta Yu M.D. - 07/24/2018 1:15 PM CDT SUBJECTIVE CHIEF COMPLAINT/REASON FOR VISIT Recheck nevus involving left dorsal wrist HISTORY OF THE PRESENT ILLNESS Zuleika Chand is a pleasant 67 y.o. female who follows up for a recheck of a nevus involving the left dorsal wrist. During her last visit with me on 04/24/18, this nevus had slight asymmetry. Today, she reports that it has not changed. The patient denies a personal history for skin cancer or family history for melanoma. MEDICAL HISTORY No history of skin cancer ?? FAMILY HISTORY Mother has history for probable non-melanoma skin cancer OBJECTIVE PHYSICAL EXAMINATION General: Awake, alert, in no acute distress, and with appropriate affect. Skin: Examination of the left dorsal wrist reveals a 6 mm x 5 mm brown nevus with slight asymmetry that appears benign on clinical examination and dermoscopy. ASSESSMENT/PLAN #1 Left dorsal wrist: Benign nevus This lesion appears benign on clinical examination and dermoscopy. The ABCDE criteria for melanoma was reviewed with the patient. None of the patient's nevi reach the clinical threshold for biopsy. I recommend continued sun protection, self-skin examinations, and observation. Should any of the patient's nevi change in size, color, texture, or shape or develop symptoms such as itching or bleeding, I recommend an immediate return visit for reassessment. She will follow up for recheck of the nevus involving the left dorsal wrist and full skin cancer screening exam in October or November 2018. PATIENT EDUCATION: Ready to learn. No apparent learning barriers were identified. Learning preferences include listening. Explained diagnosis and treatment plan; patient/guardian of patient expressed understanding of thecontent. By signing my name below, I, Dalia Mccollum, attest that this documentation has been prepared under thedirection and in the presence of Enriqueta Yu M.D. Electronically Signed: patricio Connolly. 07/24/2018. 1:20 PM . I, Enriqueta Yu M.D., personally performed the services described in this documentation. All medical record entries made by the scribe were at my direction and in my presence. I have reviewed the chart and discharge instructions (if applicable) and agree that the record reflects my personal performance and is accurate and complete. Enriqueta Yu M.D. . 07/24/2018. 4:27 PM. documented in this encounter Plan of Treatment Scheduled Referrals Name Type Priority Associated Order Schedule Diagnoses Dermatology office Outpatient Referral Routine Ex pected: visit (clinic) 10/24/2018 (Approximate), Expires: 07/24/2021 documented as of this encounter Visit Diagnoses Diagnosis Nevi Multiple - Primary documented in this encounter Care Teams School Crossing Guard Relationship Specialty Start Date End Date Elsewhere, Pcp PCP - General Family Medicine 02/02/18 documented as of this encounter
--- OUTSIDE RECORDS SUMMARY | 2021-12-29 13:03 | XMS_ITS | Encounter Summary ---
:1950 Author Organization [facility] Address [address] [place] [address] Care Team Providers Name Role Phone Elsewhere, Pcp Primary Care Provider Unavailable Reason for Visit Reason Comments Skin Check Outpatient (Routine) - Closed Specialty Diagnoses / Procedures Referred By Contact Refer red To Contact Dermatology Enriqueta Yu M.D . [facility] Region [address] [place], [place] [phone] Referral ID Status Reason Start Date Expiration Date Visits Requ ested Visits Authorized [id number] Closed 05/20/2020 05/20/2021 1 1 Encounter Details Date Type Department Care Team Description 08/26/2020 Office Visit Department of Enriqueta Yu Nevi Multi ple (Primary Dx); Dermatology [place] Keratosis Seborrheic [place], [place] [address] [phone] Social History Tobacco Use Types Packs/Day Years [...] or relatives? How often do you attend muslim or Patient refused 2020 zoroastrianism services? Do you belong to any clubs or Patient refused 03/11/2020 organizations such as muslim groups, unions, fraternal or athletic groups, or [...] have completed or the highest Albertina, MEd, ENROBER, WILLIAM) degree you have received? Sex Assigned at Date Recorded Female 10/02/2021 8:58 AM CDT documented as of this encounter Progress Notes Enriqueta Yu M.D. - 08/26/2020 1:30 PM CDT SUBJECTIVE CHIEF COMPLAINT / REASON FOR VISIT Skin cancer screening exam HISTORY OF PRESENT ILLNESS Ms. Zuleika Chand is a 69 y.o. female who presents today for a full skin cancer screening examination. The patient was last seen by me in Dermatology clinic on 05/20/20. The patient denies a personal history of skin cancer or family history for melanoma. The patient denies any lesions of concern. Allergies Allergen Reactions ??? Amoxicillin Other (see [...] extremities, and bilateral lower extremities. My scribe Yvonne was present for the exam today. Examination of face, trunk, and extremities reveals multiple benign appearing nevi and lentigines, and multiple SKs. Nevi, dermal nevi, and lentigines involving the face. Examination of the left dorsal wrist reveals a 5 x 8 brown nevus with slight asymmetry and slight jagged borders but looks benign on clinical exam and dermoscopy. Examination today reveals no suspicious lesions for skin cancer. ASSESSMENT / PLAN #1 Face, trunk, and extremities: Multiple benign appearing nevi and lentigines The ABCDE criteria [...] return visit for reassessment. Follow up in 6months for a recheck of the nevus involving the left dorsal wrist. #2 Face, trunk, and extremities: Seborrheic keratosis The benign nature [...] Enriqueta Yu M.D. Electronically Signed: patricio Avina. Enriqueta Mcmullen M.D., personally performed the services described in this documentation. All medical record entries made by the scribe were at my direction and in my presence. I have reviewed the chart and discharge instructions (if applicable) and agree that the record reflects my personal performance and is accurate and complete. Enriqueta Yu M.D. documented in this encounter Plan of Treatment Not on filedocumented as of this encounter Visit Diagnoses Diagnosis Nevi Multiple - Primary Keratosis Seborrheic documented in this encounter Care Teams Vocational Rehabilitation Counselor Relationship Specialty Start Date End Date Elsewhere, Pcp PCP - General Family Medicine 02/02/18 documented as of this encounter
--- OUTSIDE RECORDS SUMMARY | 2021-12-29 13:03 | XMS_ITS | Encounter Summary ---
:1950 Author Organization [facility] Address [address] [place] [id number] Care Team Providers Name Role Phone Elsewhere, Pcp Primary Care Provider Unavailable Reason for Referral Outpatient (Routine) - Closed Specialty Diagnoses / Procedures Referred By Contact Refer red To Contact Dermatology Enriqueta Yu M.D . [facility] [address] [place] [address] [phone] Referral ID Status Reason Start Date Expiration Date Visits Requ ested Visits Authorized [id number] Closed 11/20/2018 11/20/2019 1 1 Reason for Visit Reason Comments Skin Check Outpatient (Routine) - Closed Specialty Diagnoses / Procedures Referred By Contact Refer red To Contact Dermatology Enriqueta Yu M.D . [facility] [address] [place] [address] [phone] Referral ID Status Reason Start Date Expiration Date Visits Requ ested Visits Authorized [id number] Closed 07/24/2018 07/24/2019 1 1 Encounter Details Date Type Department Care Team Description 11/20/2018 Office Visit Department of Enriqueta Yu Nevi Multi ple (Primary Dx); Dermatology in [place] Keratosis Seborrheienio; [place], [place] [address] [facility] Keratosis Seborrheic Inflamed [address] [place] [phone] Social History Tobacco Use Types Packs/Day Years [...] or relatives? How often do you attend mu-ism or Patient refused 2020 anglican services? Do you belong to any clubs or Patient refused 03/11/2020 organizations such as mu-ism groups, unions, fraternal or athletic groups, or [...] encounter Progress Notes Enriqueta Yu M.D. - 11/20/2018 3:00 PM CDT SUBJECTIVE CHIEF COMPLAINT/REASON FOR VISIT Full skin cancer screening HISTORY OF THE PRESENT ILLNESS Zuleika Chand is a pleasant 68 y.o. female who presents for a full skin cancer screening examination. We are following a lesion involving the left dorsal wrist felt to be a benign nevus. This lesion has not been changing. The patient denies a personal history of skin cancer or family history for melanoma. She uses sunscreen intermittently. No new or changing lesions are noted today. MEDICAL HISTORY Negative for skin cancer ?? FAMILY HISTORY Probable non-melanoma skin cancer in mother OBJECTIVE PHYSICAL EXAMINATION General: Awake, alert, in no acute distress, and with appropriate affect. Eyes: No scleral injection or icterus. No eyelid abnormalities. Lymph: No lower extremity edema. Skin: I have examined the scalp, face, neck, chest, abdomen, back, bilateral upper extremities, and bilateral lower extremities. Examination of the left dorsal wrist reveals a 6 mm x 5 mm brown nevus with slight asymmetry. Examination of the face reveals multiple benign-appearing nevi and lentigines. E xamination of right dorsal lateral foot reveals a 1-2 mm rough macule, likely representing a stucco keratosis versus irritated seborrheic keratosis (doubtful). Examination of the thighs reveals severalbenign-appearing nevi. Examination of the abdomen reveals a few angiomas. Examination of the anterior trunk reveals some seborrheic keratoses. Examination of the posterior legs reveals a few skin tags,nevi and lentigines. Examination of the back reveals a few skin tags, nevi and lentigines. Examination of the left medial foot, right heel and right lateral ankle reveals stucco keratoses. No suspicious lesions for skin cancer today. ASSESSMENT/PLAN #1 Right dorsal lateral foot: Irritated Stucco keratosis x1 CONSENT Discussed the risks, benefits, alternatives, and the necessity of other members of the healthcare team participating in the procedure. All questions answered and consent given. PROCEDURE INFORMATION After discussion of the risks, benefits and alternatives to treatment with cryotherapy, informed consent was obtained. We treated a total of 1 lesion(s) with two 98-31-lipthp freeze-thaw cycles of liquid nitrogen cryotherapy. The patient tolerated the procedure well. Aftercare instructions were provided in written and verbal form to the patient. Should any of these lesions recur, the patient should return for biopsy or further evaluation. Follow up in 1-2 months for recheck if these areas do not complete resolve. #2 Trunk and extremities: Multiple nevi and lentigines The ABCDE criteria for melanoma was reviewed with the patient. None of the patient's nevi reach the clinical threshold for biopsy. We will continue monitoring the lesion involving the left dorsal wrist. I recommend continued sun protection, self-skin examinations, and observation. Should any of the patient's nevi change in size, color, texture, or shape or develop symptoms such as itching or bleeding, I recommend an immediate return visit for reassessment. Follow up in 4 months for recheck of the stated lesion, or immediately if any new or changing lesions are noted. #3 Trunk and extremities: Seborrheic keratosis The benign nature of the skin lesion(s) was discussed with the patient. No treatment is required. I recommend continued observation. Should symptoms or changes develop related to this condition, I would recommend a return visit for reassessment. #4 Left medial foot, right heel and right lateral ankle: Stucco keratosis The benign nature of the skin [...] Enriqueta Yu M.D. Electronically Signed: patricio Rosales. 11/20/2018. 3:35 PM. I, Enriqueta Yu M.D., personally performed the services described in this documentation. All medical record entries made by the scribe were at my direction and in my presence. I have reviewed the chart and discharge instructions (if applicable) and agree that the record reflects my personal performance and is accurate and complete. Enriqueta Yu M.D. . 11/20/2018. 4:33 PM. documented in this encounter Plan of Treatment Scheduled Referrals Name Type Priority Associated Order Schedule Diagnoses Dermatology office Outpatient Referral Routine Ex pected: visit (clinic) 11/20/2018 (Approximate), Expires: 11/20/2021 documented as of this encounter Visit Diagnoses Diagnosis Nevi Multiple - Primary Keratosis Seborrheic Keratosis Seborrheic Inflamed documented in this encounter Care Teams Humanities Instructor Relationship Specialty Start Date End Date Elsewhere, Pcp PCP - General Family Medicine 02/02/18 documented as of this encounter
--- OUTSIDE RECORDS SUMMARY | 2021-12-29 13:03 | XMS_ITS | Encounter Summary ---
:1950 Author Organization [facility] Address [address] [place] [phone] Care Team Providers Name Role Phone Elsewhere, Pcp Primary Care Provider Unavailable Reason for Referral Outpatient (Routine) - Closed Specialty Diagnoses / Procedures Referred By Contact Refer red To Contact Dermatology Enriqueta Yu M.D . [facility] Region [address] [place] [address] [phone] Referral ID Status Reason Start Date Expiration Date Visits Requ ested Visits Authorized [id number] Closed 04/24/2018 04/24/2019 1 1 Scheduling Instructions Recheck nevus involving left dorsal wris t in 3 months Reason for Visit Reason Comments Skin Check Outpatient (Routine) - Closed Specialty Diagnoses / Procedures Referred By Contact Refer red To Contact Dermatology Enriqueta Yu M.D . [facility] Region [address] [place] [address] [phone] Referral ID Status Reason Start Date Expiration Date Visits Requ ested Visits Authorized [id number] Closed 01/23/2018 01/23/2019 1 1 Encounter Details Date Type Department Care Team Description 04/24/2018 Office Visit Department of Enriqueta Yu Nevi Multi ple (Primary Dx); Dermatology [place] Keratosis Seborrheic [place], [place] [address] [phone] Social History Tobacco Use Types Packs/Day Years [...] or relatives? How often do you attend scientology or Patient refused 2020 sabianist services? Do you belong to any clubs or Patient refused 03/11/2020 organizations such as scientology groups, unions, fraternal or athletic groups, or [...] encounter Progress Notes Enriqueta Yu M.D. - 04/24/2018 1:30 PM CDT CHIEF COMPLAINT Recheck actinic keratoses HISTORY OF THE PRESENT ILLNESS Zuleika Chand is a pleasant 67 y.o. female who follows up for recheck of actinic keratoses. Duringher most recent visit with me on 01/23/18, we treated one actinic keratosis with liquid nitrogen cryotherapy. At the visit, we also biopsied a lesion involving her right mid lateral foot that dermatopathology returned as benign fibrokeratoma. The patient denies a personal history for skin cancer or family history for melanoma. She does want to make sure that the biopsy site involving the right mid lateral foot has healed properly. PAST MEDICAL HISTORY No history of skin cancer FAMILY HISTORY Mother has history for probable non-melanoma skin cancer PHYSICAL EXAM General: Awake, alert, in no acute distress, and with appropriate affect. Skin: Examination of the cheeks reveals some benign nevi and lentigines. No actinic keratoses remaining. Examination of the forehead reveals some sebaceous hyperplasia. Examination of the left dorsal hand reveals some seborrheic keratoses, benign nevi and lentigines. Examination of the left dorsal wrist reveals a 5 mm x 5 mm brown nevus with slight asymmetry. Examination of the right mid lateral footreveals a shave biopsy site that has completely healed. No lesion or infection. Examination of the right distal anterior leg reveals a seborrheic keratosis. IMPRESSION AND PLAN #1 Multiple nevi The ABCDE criteria for melanoma was reviewed with the patient. None of the patient's nevi reach the clinical threshold for biopsy. We will continue to observe the nevus involving the left dorsal wrist.I recommend continued sun protection, self-skin examinations, and observation. Should any of the patient's nevi change in size, color, texture, or shape or develop symptoms such as itching or bleeding,I recommend an immediate return visit for reassessment. Otherwise, follow up in 3 months for recheckof the nevus involving the left dorsal wrist. #2 Face, hands, and legs: Seborrheic Keratosis The benign nature of the skin lesion(s) was discussed with the patient. No treatment is required. I recommend continued observation. Should symptoms or changes develop related to this condition, I would recommend a return visit for reassessment. PATIENT EDUCATION Ready to learn. No apparent learning barriers were identified. Learning preferences include listening. Explained diagnosis and treatment plan; patient/guardian of patient expressed understanding of thecontent. By signing my name below, Dalia Mcmullen, attest that this documentation has been prepared under thedirection and in the presence of Enriqueta Yu M.D. Electronically Signed: patricio Connolly. 04/24/2018. 1:32 PM . Enriqueta Mcmullen M.D., personally performed the services described in this documentation. All medical record entries made by the scribe were at my direction and in my presence. I have reviewed the chart and discharge instructions (if applicable) and agree that the record reflects my personal performance and is accurate and complete. Enriqueta Yu M.D. . 04/24/2018. 3:13 PM. documented in this encounter Plan of Treatment Scheduled Referrals Name Type Priority Associated Order Schedule Diagnoses Dermatology office Outpatient Referral Routine Ex pected: visit (clinic) 07/25/2018 (Approximate), Expires: 04/24/2021 documented as of this encounter Visit Diagnoses Diagnosis Nevi Multiple - Primary Keratosis Seborrheic documented in this encounter Care Teams Special Investigation Unit Investigator Relationship Specialty Start Date End Date Elsewhere, Pcp PCP - General Family Medicine 02/02/18 documented as of this encounter
--- OUTSIDE RECORDS SUMMARY | 2021-12-29 13:03 | XMS_ITS | Encounter Summary ---
:1950 Author Organization [facility] Address [address] [place] [address] Care Team Providers Name Role Phone Unavailable Primary Care Provider Unavailable Reason for Referral Outpatient (Routine) - Closed Specialty Diagnoses / Procedures Referred By Contact Refer red To Contact Dermatology Enriqueta Yu M.D . [facility] Region [address] [place] [address] Referral ID Status Reason Start Date Expiration Date Visits Requ ested Visits Authorized [id number] Closed 01/23/2018 01/23/2019 1 1 RONMENTAL SCIENCE PROGRAM DIRECTOR Reason for Visit Reason Comments Skin Check Appointment Request (Routine) - Closed Specialty Diagnoses / Procedures Referred By Contact Refer red To Contact Dermatology Referral ID Status Reason Start Date Expiration Date Visits Requ ested Visits Authorized [id number] Closed 11/03/2017 11/03/2018 1 Encounter Details Date Type Department Care Team Description 01/23/2018 Office Visit Department of Enriqueta Yu, Tumor Skin Uncertain Behavior (Primary Dx); Dermatology in [place] [facility] [place], [place] [address] [phone] Social History Tobacco Use Types Packs/Day Years [...] or relatives? How often do you attend caodaism or Patient refused 2020 religion services? Do you belong to any clubs or Patient refused 03/11/2020 organizations such as caodaism groups, unions, fraternal or athletic groups, or [...] encounter Progress Notes Enriqueta Yu M.D. - 01/23/2018 2:30 PM CST CHIEF COMPLAINT/REASON FOR VISIT Recheck of actinic keratosis involving the left lower lateral cheek HISTORY OF PRESENT ILLNESS Ms. Zuleika Chand is a 67 y.o. female who presents today for a recheck of an actinic keratosis involving the left lower lateral cheek. The patient denies a history of skin cancer and has no family history for melanoma. Today, the patient has additional concern for a lesion involving her right foot that has been present for a few weeks. She reports that it bled, and notes that it was painful and felt as if there was glass stuck in her foot. She does not recall any specific trauma to the right foot. Allergies not on file PAST MEDICAL HISTORY No history of skin cancer FAMILY HISTORY Mother has history for probable non-melanoma skin cancer No family history for melanoma PHYSICAL EXAM General: Awake, alert, in no acute distress, and with appropriate affect. Eyes: No scleral injection or icterus. No eyelid abnormalities. Lymph: No lower extremity edema. Skin: I have examined the scalp, face, neck, chest, abdomen, back, bilateral upper extremities, and bilateral lower extremities. Examination of the right upper forehead reveals an actinic keratosis. Examination of the right mid lateral foot reveals a 2.5 mm x 3.5 mm flesh-colored papule. Examination of the right lower azar reveals some seborrheic keratoses. IMPRESSION/REPORT/PLAN #1 Right dorsal lateral foot (right mid lateral foot): Irritated dermal nevus versus poroma We recommend a 5-mm punch biopsy of the right dorsal lateral foot (right mid lateral foot). Photograph taken today with patient's verbal consent. We will correspond as to the results and if any furthertreatment is needed. PROCEDURAL PAUSE Procedural pause conducted to verify: correct patient identity, procedure to be performed, and as applicable, correct side and site, correct patient position, and availability of implants, special equipment, or special requirements. PROCEDURE DETAILS Punch biopsy. We explained the potential diagnosis and recommended that we obtain a biopsy. The risks and benefitsof the procedure were discussed, and the patient consented to these procedures. The patient denies any allergies to local anesthetics. Using 1% lidocaine with epinephrine for local anesthesia, a 5-mm punch biopsy was obtained from the right dorsal lateral foot (right mid lateral foot). Biopsy submitted to Dermatopathology. Biopsy site closed with a top layer of two 4-0 nylon skin sutures. The skin sutures need to be removed in 10-14 days. Dressing was applied, and wound care instructions were explained. Biopsy results and any further recommendations will be communicated to the patient by letter. Patient given pamphlet [id number]. Discussed the risks, benefits, alternatives, and the necessity of other members of the healthcare team participating in the procedure. All questions answered and consent given. #2 Right upper forehead: Actinic keratosis CONSENT Discussed the risks, benefits, alternatives, and the necessity of other members of the healthcare team participating in the procedure. All questions answered and consent given. ?? PROCEDURE INFORMATION Given the precancerous nature of this lesion, treatment is medically indicated. After discussion of the risks, benefits and alternatives to treatment with cryotherapy, informed consent was obtained. Wetreated a total of one lesion with two 20-second freeze-thaw cycles of liquid nitrogen cryotherapy. The patient tolerated the procedure well. Aftercare instructions were provided in written and verbal form to the patient. Should any of these lesions recur, the patient should return for biopsy or further evaluation. Follow up in 1-2 months for recheck if these do not completely resolve. #3 Right lower azar: Seborrheic Keratosis The benign nature of the [...] and in the presence of Enriqueta Yu M.D.. Electronically Signed: patricio Soriano. 01/23/2018. 3:14 PM . IEnriqueta M.D., personally performed the services described in this documentation. All medical record entries made by the scribe were at my direction and in my presence. I have reviewed the chart and discharge instructions (if applicable) and agree that the record reflects my personal performance and is accurate and complete. Enriqueta Yu M.D. . 01/23/2018. 3:31 PM. RONMENTAL SCIENCE PROGRAM DIRECTOR Enriqueta Yu M.D. - 01/23/2018 2:30 PM CST b9 letter, [place] pt. RONMENTAL SCIENCE PROGRAM DIRECTOR documented in this encounter Miscellaneous Notes Addendum Note - Kerry Corcoran L.P.N. - 01/23/2018 2:30 PM ENVIRONMENTAL SCIENCE PROGRAM DIRECTOR Addended by: KERRY CORCORAN on: 02/01/2018 04:11 PM Modules accepted: Orders RONMENTAL SCIENCE PROGRAM DIRECTOR documented in this encounter Plan of Treatment Scheduled Orders Name Type Priority Associated Diagnoses Order S chedule Suture Removal Procedures Routine Tumor Skin Uncertain Expec renetta: 02/02/2018 Behavior (Approximate), Expires: 02/01/2021 Scheduled Referrals Name Type Priority Associated Order Schedule Diagnoses Dermatology office Outpatient Referral Routine Ex pected: visit (clinic) 04/23/2018 (Approximate), Expires: 01/23/2021 documented as of this encounter Procedures Procedure Name Priority Date/Time Associated Comments Diagnosis DERMATOPATHOLOGY CONSULT Routine 01/23/2018 4:07 Tumor Skin Results for this PM [facility] Uncertain Behavior procedure are in the results section. documented in this encounter Results Dermatopathology Consult (01/23/2018 4:07 PM ENVIRONMENTAL SCIENCE PROGRAM DIRECTOR) Component Value Ref Test Analysis Performed At [facility] gist Range Method Time Signature Gross Received in formalin labeled with the patient's name, 01/27/2018 [facility] Description: medical record number, and right dorsal lateral foot is a 4:28 PM LABORATORIES - 0.5 cm in average diameter pale warner skin punch biopsy [facility] excised to a depth 0.1 cm. ??There is a 0.4 x 0.4 cm pale [facility] hypopigmented raised lesion with well-defined borders centrally located on the skin surface. ??The specimen is bisected and submitted entirely in cassette A1. Grossed by ANGY. Participated in Teena Gonzales, 01/27/2018 [facility]-Pathology 4:28 PM LABORATORIES - Interpretation Fellow [facility] Report Alesia I. 01/27/2018 [facility] electronically Belkys Mars 4:28 PM LABORATORIE S - signed by [facility] 01/27/2018 [facility] 4:28 PM LABORATORIES - [facility] Interpetation FINAL DIAGNOSIS 01/27/2018 [facility]. ??DermPath Consult Wet Tissue; Right dorsal lateral alvin t, 4:28 PM LABORATORIES - Skin punch biopsy: ??Fibrokeratoma [facility] Clinical photo reviewed. Specimen Anatomical Collection Method Collection Time Receive d Time (Source) Location / / Volume Laterality Tissue 01/23/2018 4:07 PM 8 8:05 ENVIRONMENTAL SCIENCE PROGRAM DIRECTOR AM [facility] Narrative This result has an attachment that is no t available. Enriqueta Yu M.D. LAB PATH DERM ORDERABLES Performing Organization Address City/State/ZIP Code Phon e Number [facility]ORATORIES - [address] [place], [place] [address] [facility] documented in this encounter Visit Diagnoses Diagnosis Tumor Skin Uncertain Behavior - Primary Keratosis [facility] documented in this encounter Administered Medications Inactive Administered Medications - up to 3 most recent administrations Medication Order MAR Action Action Date Dose Rate Site lidocaine-EPINEPHrine 1 %-1:100,000 Given 01/23/2018 3:08 PM ENVIRONMENTAL SCIENCE PROGRAM DIRECTOR 2 mL injection 2 mL (XYLOCAINE W/EPI) 2 mL, infiltration, Once, On Tue01/23/18 at 1515, For 1 dose documented in this encounter
--- OUTSIDE RECORDS SUMMARY | 2021-12-29 13:03 | XMS_ITS | Encounter Summary ---
:1950 Author Organization [facility] Address [address] [place] [address] Care Team Providers Name Role Phone Elsewhere, Pcp Primary Care Provider Unavailable Reason for Visit Reason Comments Skin Check Outpatient (Routine) - Closed Specialty Diagnoses / Procedures Referred By Contact Refer red To Contact Dermatology Enriqueta Yu M.D . [facility] Region [address] [place], [place] [address] Referral ID Status Reason Start Date Expiration Date Visits Requ ested Visits Authorized [id number] Closed 03/26/2019 03/25/2020 1 1 Encounter Details Date Type Department Care Team Description 07/02/2019 Office Visit Department of Enriqueta Yu Nevi Multi ple (Primary Dx); Dermatology in [place] [facility]; [place], [place] [address] [facility] Keratosis Seborrheic Inflamed [address] [place] [phone] Social History Tobacco Use Types Packs/Day [...] or relatives? How often do you attend hinduism or Patient refused 2020 jain services? Do you belong to any clubs or Patient refused 03/11/2020 organizations such as hinduism groups, unions, fraternal or athletic groups, or [...] encounter Progress Notes Enriqueta Yu M.D. - 07/02/2019 1:30 PM CDT SUBJECTIVE CHIEF COMPLAINT / REASON FOR VISIT Skin cancer screening exam HISTORY OF PRESENT ILLNESS Ms. Zuleika Chand is a 68 y.o. female who presents today for a full skin cancer screening examination. The patient denies a personal history of skin cancer or family history for melanoma. The patientdenies any lesions of concern. She has had actinic keratoses treated in the past with liquid nitrogen. Allergies Allergen Reactions ??? Amoxicillin Other (see comments) MEDICAL HISTORY No history of skin cancer FAMILY HISTORY No family history for melanoma Probable nonmelanoma skin cancer in father OBJECTIVE PHYSICAL EXAMINATION General: Awake, alert, in no acute distress, and with appropriate affect. Eyes: No scleral injection or icterus. No eyelid abnormalities. Lymph: No lower extremity edema. Skin: I have examined the scalp, face, neck, chest, abdomen, back, bilateral upper extremities, and bilateral lower extremities. My nurse Kerry was in the room for the exam. She has 3 actinic keratoses involving the left cheek in 2 involving the right cheek as well as 2 involving the left forearm for atotal of 7 actinic keratoses. She has 1 irritated SK involving the left dorsal foot. Examination of her skin otherwise reveals benign nevi. No suspicious lesions for skin cancer today. ASSESSMENT / PLAN #1 Actinic keratosis CONSENT Discussed the risks, benefits, alternatives, and the necessity of other members of the healthcare team participating in the procedure. All questions answered and consent given. PROCEDURE INFORMATION Given the precancerous nature of this lesion(s), treatment is medically indicated. After discussion of the risks, benefits and alternatives to treatment with cryotherapy, informed consent was obtained.We treated a total of 7 lesion(s) with two 10-second freeze-thaw cycles of liquid nitrogen cryotherapy. The patient tolerated the procedure well. Aftercare instructions were provided in written and verbal form to the patient. Should any of these lesions recur, the patient should return for biopsy or further evaluation. #2 Seborrheic keratosis The benign nature of the skin lesion(s) was discussed with the patient. No treatment is required. I recommend continued observation. Should symptoms or changes develop related to this condition, I would recommend a return visit for reassessment. #3 Benign nevi The ABCDE criteria for melanoma was [...] patient/guardian of patient expressed understanding of thecontent. documented in this encounter Plan of Treatment Not on filedocumented as of this encounter Visit Diagnoses Diagnosis Nevi Multiple - Primary Keratosis Actinic Keratosis Seborrheic Inflamed documented in this encounter Care Teams Noodle Catalyst Maker Relationship Specialty Start Date End Date Elsewhere, Pcp PCP - General Family Medicine 02/02/18 documented as of this encounter
--- OUTSIDE RECORDS SUMMARY | 2021-12-29 13:04 | XMS_ITS | Encounter Summary ---
:1950 Author Organization [facility] Address [address] [place] [address] Care Team Providers Name Role Phone Unavailable Primary Care Provider Unavailable Encounter Details Date Type Department Care Team Description 04/14/2015 Hospital Encounter HX [facility] Contreras Zhang M.D. [address] [place] [address], [address] [place] [address] (Wo rk) Social History Tobacco Use Types Packs/Day Years Used Date Smoking Tobacco: Never Assessed Alcohol Habits Answer Date Recorded How often [...] or relatives? How often do you attend evangelical or Patient refused 2020 rastafarian services? Do you belong to any clubs or Patient refused 03/11/2020 organizations such as evangelical groups, unions, fraternal or athletic groups, or [...] AM CDT documented as of this encounter Last Filed Vital Signs Vital Sign Reading Time Taken Comments Blood Pressure 138/70 04/14/2015 1:39 PM GRAPHIC PRODUCTION ARTIST Pulse - - Temperature - - Respiratory Rate - - Oxygen Saturation - - Inhaled Oxygen Concentration - - Weight 97.2 kg (214 lb 4.6 oz) 04/14/2015 1:39 PM GRAPHIC PRODUCTION ARTIST Height - - Body Mass Index - - documented in this encounter Medications at Time of Discharge Medication Sig Dispensed Refills Start Date End Date calcium carb/vit Take 1 tablet by 0 04/14/2015 D3/minerals mouth daily. (CALCIUM-VITAMIN D ORAL) documented as of this encounter Procedure Notes Sohail Zhang M.D. - 04/14/2015 12:00 AM CST 1EMG EMG LITHOGRAPHIC RETOUCHER APPRENTICE Sohail Zhang MD ([phone]) REFERRED BY Dr. Mills REFERRED FOR Ms. Barclay is a pleasant 64-year-old female who had a right total hip arthroplasty performed on January 17, 2015. Following that, she has had weakness and paresthesias in the right lower extremity. Her weakness primarily involves the quadriceps and hip flexors, as well as she has been experiencing numbness in the medial aspect of the thigh and leg. SUMMARY Prior to starting the procedure, the patients identity was verified, pertinent available records were reviewed, the nature of the procedure was explained, the appropriate sites of the exam were confirmed directly with the patient, and a pre-procedure pause was performed for final verification of all of the above. Please see nerve conduction and needle electromyographic examination summary data scanned into medical record. Nerve conduction studies of the right lower extremity demonstrated a mildly decreased peroneal compound muscle action potential amplitude. F-waves were within estimates. Needle examination of the rightlower extremity showed marked fibrillation potentials and no activation of the rectus femorals, vastus medialis, vastus lateralis and fibrillation potentials with reduced recruitment in the iliopsoas. CLINICAL INTERPRETATION 1. 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 2. The mildly decreased peroneal compound muscle action potential amplitude is likely related to technical issues secondary to the patient's lower extremity edema and is of doubtful clinical significance. Sohail Zhang M.D./branden Electronically Signed By: SOHAIL ZHANG MD On: 04/15/2015 10:00 AM Modified by and Electronically Signed by: SOHAIL ZHANG MD On: 04/15/2015 10:00 AM Source: [facility] MHSDOLBEYNONRADSYS Document Id: [id number] HIC PRODUCTION ARTIST documented in this encounter Miscellaneous Notes Miscellaneous - Sohail Zhang M.D. - 04/14/2015 4:56 PM CST Ambulatory Patient Summary [address] [id number] Visit Information Name: DUNIA BARCLAY [facility] Number: [id number] Current Date: 04/14/2015 16:56:03 Physicians Attending Provider: SOHAIL ZHANG MD Primary Care Provider: PCP, DAMI BARCLAY DUNIA has been given the following list of follow-up instructions, medication list, and patient education materials: Follow-up Instructions Your Medications Here is a list of your medications. It is important to take your medications as directed. Use a pillbox or chart to help remind you to take your medications. Please let your doctor or nurse know if you have problems taking your medications. Medication/Strength How to Take Indications/Special Instructions/Comments/Notes for Patient Medication Changes/Routing calcium-vitamin D (Caltrate 600 + D) 1 Tablet(s), Oral, once a day chlorthalidone (chlorthalidone 25 mg oral tablet) 1 Tablet(s), Oral, once a day losartan (losartan 50 mg oral tablet) 1 Tablet(s), Oral, once a day lovastatin (lovastatin) Oral omeprazole (omeprazole) 20 mg, Oral, once a day Stop Taking the Following Medications: Medication list as of 04-14-15 16:56 Attention: If you have any medications at home that are not on this list, DO NOT take them until youcontact your provider for clarification. Give a copy of your medication list to your primary care provider. Update your medication list any time medications or doses are changed and carry your medication list at all times in case of emergency. Electronically Signed By: SOHAIL ZHANG MD Signed On:14-APR-2015 16:55:44 Your Allergies & Intolerances Substance Reaction Symptoms Category Comments amoxicillin Drug Your Problem List Problem Status Onset Comments No Problems found Your Upcoming Appointments Date Time Location Provider No Appointments found Attention: Contact your local Clinic if further appointment detail needed. Consider Using Patient Online Services Patient Online Services is a secure online and Mobile application that lets you: ?? View lab and test results ?? View portions of your medical record including clinical notes, immunizations and discharge summaries ?? Request an appointment or medication refill ?? Review your appointment schedule ?? Send secure messages to your care team Its easy to create an account if you dont have one. Go to [email or web address] and click on Create Your Account. Then, follow the directions to complete the online form. Youll be asked for your [facility] number which you can find at the top of this document. Your Goals/Additional instructions: Source: [facility] POWERCHART Document Id: [id number] HIC PRODUCTION ARTIST Miscellaneous - Sohail Zhang M.D. - 04/14/2015 4:56 PM CST Ambulatory Discharge Medication List [address] [id number] Visit Information Name: NINGDUNIA [facility] Number: [id number] Visit Date: 04/14/2015 16:56:03 Attending Provider: SOHAIL ZHANG MD Primary Care Provider: PCP, DAMI BARCLAYDUNIA has been given the following list of medications: Your Medications It is important to take your medications as directed. Use a pill box or chart to help remind you to take your medications. Please let your doctor or nurse know if you have problems taking your medications. Medication/Strength How to Take Indications/Special Instructions/Comments/Notes for Patient Medication Changes/Routing calcium-vitamin D (Caltrate 600 + D) 1 Tablet(s), Oral, once a day chlorthalidone (chlorthalidone 25 mg oral tablet) 1 Tablet(s), Oral, once a day losartan (losartan 50 mg oral tablet) 1 Tablet(s), Oral, once a day lovastatin (lovastatin) Oral omeprazole (omeprazole) 20 mg, Oral, once a day Stop Taking the Following Medications: Medication list as of 04-14-15 16:56 Attention: If you have any medications at home that are not on this list, DO NOT take them until youcontact your provider for clarification. Give a copy of your medication list to your primary care provider. Update your medication list any time medications or doses are changed and carry your medication list at all times in case of emergency. Electronically Signed By: SOHAIL ZHANG MD Signed On:14-APR-2015 16:55:44 Additional Information: Source: [facility] POWERCHART Document Id: [id number] HIC PRODUCTION ARTIST Miscellaneous - Geno Borja L.P.N. - 04/14/2015 1:39 PM CST Adult Bead Supervisor Intake/History Adult Bead Supervisor Intake/History Entered On: 04/14/2015 13:41 GRAPHIC PRODUCTION ARTIST Performed On: 04/14/2015 13:39 GRAPHIC PRODUCTION ARTIST by GENO BORJA LPN Intake Systolic Blood Pressure : 138 mmHg Diastolic Blood Pressure : 70 mmHg NIBP Mean : 93 mmHg BP Location : Left upper extremity Blood Pressure Cuff Size : Large Actual Weight : 97.2 kg(Converted to: 214 lb 5 oz) Dosing Weight Clinic : 97.2 kg GENO BORJA LPN - 04/14/2015 13:39 GRAPHIC PRODUCTION ARTIST General Info Languages : Persian Is Patient Female and 13-50 no hysterectomy : No GENO BORJA LPN - 04/14/2015 13:39 GRAPHIC PRODUCTION ARTIST Subjective Pain Symptoms : No GENO BORJA LPN - 04/14/2015 13:39 GRAPHIC PRODUCTION ARTIST Dependent Habits Exposure to Tobacco Smoke : Other: never Smoking Status : Never smoker Tobacco 2A : No Tobacco Use/Currently Using : No Tobacco Use/Last 30 Days : No Tobacco Use/Last 12 months : No GENO BORJA LPN - 04/14/2015 13:39 GRAPHIC PRODUCTION ARTIST Source: [facility] POWERCHART Document Id: [id number] GRAPHIC PRODUCTION ARTIST!21 HIC PRODUCTION ARTIST Telephone Encounter - Conversion, Historical Provider Ser - 04/11/2015 10:12 AM CST *Phone Message Document Contains Addenda Addendum by GENO BORJA LPN on 14 April 2015 10:47:56 GRAPHIC PRODUCTION ARTIST Spoke with patient. Addendum by RORO ESCAMILLA on 14 April 2015 10:10:29 GRAPHIC PRODUCTION ARTIST From: RORO ESCAMILLA ( Physical Medicine and Rehabilitation Staff) To: Physical Medicine and Rehabilitation Staff; Sent: 04/14/2015 10:10:29 GRAPHIC PRODUCTION ARTIST Subject: FW: *Phone Message Addendum by RORO ESCAMILLA on 14 April 2015 10:10:24 GRAPHIC PRODUCTION ARTIST Patient returned call. She has her phone closer now. Please try her again. Addendum by GENO BORJA LPN on 14 April 2015 10:01:17 GRAPHIC PRODUCTION ARTIST Left message for patient to return call. From: RORO ESCAMILLA ([facility] Mechanical Manager) To: Physical Medicine and Rehabilitation Staff; Sent: 04/11/2015 10:12:55 GRAPHIC PRODUCTION ARTIST Subject: *Phone Message Caller is: ( x ) Patient ( ) Mother ( ) Father ( ) Spouse ( ) Daughter ( ) Son ( ) Pharmacy ( ) Other: Physician: Patient MRN #: Reason for Call: Patient is wondering what medications are ok for her to take prior to her EMG on Tuesday with Dr. Zhang. She can be reached at [phone] Message: Advice/Action: Source used: ( ) Verbalizes understanding of instructions ( ) Instructed to call back if symptoms worsen or do not resolve ( ) Refused to see provider ( ) Appointment Scheduled ( ) OK to leave message on voice mail ( ) Patient told to expect return call: ( ) today ( ) tomorrow ( ) next work day ( ) Patient's email ( ) Patient told physician out of office, will call upon return call on ( ) ( ) Patient told physician out of office, routed to other physician ( ) Other ( ) Call back telephone number ( ) Call back cell phone number ( ) Source: [facility] Folloyu Document Id: [id number] documented in this encounter Plan of Treatment Not on filedocumented as of this encounter Visit Diagnoses Not on filedocumented in this encounter
--- OUTSIDE RECORDS SUMMARY | 2021-12-29 13:04 | XMS_ITS | Encounter Summary ---
:[address] [facility] Address [address] [place] [address] Care Team Providers Name Role Phone Unavailable Primary Care Provider Unavailable Encounter Details Date Type Department Care Team Description 07/30/2015 Hospital Encounter HX [facility]TR Contreras Zhang M.D. [address] [place] [address], [address] [place] [address] (Wo rk) Social History Tobacco [...] you attend muslim or Patient refused 2020 buddhism services? Do you belong to any clubs [...] Sign Reading Time Taken Comments Blood Pressure 118/68 07/30/2015 10:20 AM CDT Pulse - - Temperature - - Respiratory Rate - - Oxygen Saturation - - Inhaled Oxygen Concentration - - Weight 97.2 kg (214 lb 4.6 oz) 07/30/2015 10:20 AM CDT Height - - Body Mass Index - - documented in this encounter Medications at Time of Discharge Medication Sig Dispensed Refills Start Date End Date calcium carb/vit Take 1 tablet by 0 04/14/2015 D3/minerals mouth daily. (CALCIUM-VITAMIN D ORAL) documented as of this encounter Procedure Notes Sohail Zhang M.D. - 07/30/2015 12:00 AM CDT 1EMG EMG COMMISSION BROKER Sohail Zhang MD ([phone]) REFERRED BY Dr. Hardy Mills REFERRED FOR MsKayleigh Barclay is a very pleasant 64-year-old female who developed right lower extremity weakness following a total hip arthroplasty performed on January 17, 2015. 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 She is referred today for a limited evaluation for comparison purposes to the previous EMG that was performed on April 14, 2015. SUMMARY Prior to starting the procedure, the patients identity was verified, pertinent available records were reviewed, the nature of the procedure was explained, the appropriate sites of the exam were confirmed directly with the patient, and a pre-procedure pause was performed for final verification of all of the above. Please see nerve conduction and needle electromyographic examination summary data scanned into medical record. A previous electrodiagnostic study performed on 04/14/2015 was used for comparison purposes. Nerve conduction studies were not performed, as this study was performed specifically to re-evaluated the patient's known right femoral neuropathy. Needle examination of the right lower extremity showed fibrillation potentials and long duration complex motor unit potentials in the rectus femoris. There are fibrillation potentials and one long duration complex motor unit potential present in the vastus medialis. There are long duration motor unit potentials without fibrillation potentials in the iliopsoas. CLINICAL INTERPRETATION 1. 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 When compared to the previous electrodiagnostic study performed on 11/13/2015, there has been improvement in the femoral neuropathy with evidence of reinnervation now occurring primarily in the iliopsoas and rectus femoris. The most marked findings are now in the vastus medialis. Sohail Zhang M.D./branden Electronically Signed By: SOHAIL ZHANG MD On: 08/04/2015 09:18 AM Modified by and Electronically Signed by: SOHAIL ZHANG MD On: 08/04/2015 09:18 AM Source: [facility] MHSDOLBEYNONRADSYS Document Id: [id number] documented in this encounter Miscellaneous Notes Miscellaneous - Sohail Zhang M.D. - 07/30/2015 11:32 AM CDT Ambulatory Patient Summary [address] [id number] Visit Information Name: DUNIA BARCLAY [facility] Number: [id number] Current Date: 07/30/2015 11:32:25 Physicians Attending Provider: SOHAIL ZHANG MD Primary Care Provider: PCP, DAMI BARCLYA DUNIA has been given the following list [...] the Following Medications: Medication list as of 07-30-15 11:32 Attention: If you have any medications at [...] Electronically Signed By: SOHAIL ZHANG MD Signed On:30-JUL-2015 11:32:13 Your Allergies & Intolerances Substance Reaction Symptoms [...] if you dont have one. Go to [email or web address] and click on Create Your Account. Then, follow the directions to complete the online form. Youll be asked for your [facility] number which you can find at the top of this document. Your Goals/Additional instructions: Source: [facility] POWERCHART Document Id: [id number] Miscellaneous - Sohail Zhang M.D. - 07/30/2015 11:32 AM CDT Ambulatory Discharge Medication List [address] [id number] Visit Information Name: DUNIA BARCLAY [facility] Number: [id number] Visit Date: 07/30/2015 11:32:25 Attending Provider: SOHAIL ZHANG MD Primary Care Provider: PCP, DUNIA MARINA has been given the following list of [...] the Following Medications: Medication list as of 07-30-15 11:32 Attention: If you have any medications at [...] Electronically Signed By: SOHAIL ZHANG MD Signed On:30-JUL-2015 11:32:13 Additional Information: Source: [facility] POWERCHART Document Id: [id number] Miscellaneous - Rosmery Aleman, L.P.N. - 07/30/2015 10:20 AM CDT Adult Torpedo Shooter Intake/History Adult Torpedo Shooter Intake/History Entered On: 07/30/2015 10:22 CDT Performed On: 07/30/2015 10:20 CDT by ROSMERY ALEMAN LPN Intake Systolic Blood Pressure : 118 mmHg Diastolic Blood Pressure : 68 mmHg NIBP Mean : 85 mmHg BP Location : Right upper extremity Blood Pressure Cuff Size : Regular Actual Weight : 97.2 kg(Converted to: 214 lb 5 oz) Weight Source : Standing scale Dosing Weight Clinic : 97.2 kg ROSMERY ALEMAN LPN - 07/30/2015 10:20 CDT General Info Information Given By : Patient Languages : Kinyarwanda Is Patient Female and 13-50 no hysterectomy : ROSMERY Fitzpatrick [facility] - 07/30/2015 10:20 CDT Subjective Pain Symptoms : ROSMERY Fitzpatrick [facility] - 07/30/2015 10:20 CDT Dependent Habits Exposure to Tobacco Smoke : Other: never Smoking Status : Never smoker Tobacco 2A : No Tobacco Use/Currently Using : No Tobacco Use/Last 30 Days : No Tobacco Use/Last 12 months : ROSMERY Fitzpatrick [facility] - 07/30/2015 10:20 CDT Source: [facility] POWERLe[employer] Entertainment Document Id: [id number] CDT!23 documented in this encounter Plan of Treatment Not on filedocumented as of this encounter Visit Diagnoses Not on filedocumented in this encounter
--- OUTSIDE RECORDS SUMMARY | 2021-12-29 13:04 | XMS_ITS | Encounter Summary ---
:1950 Author Organization [facility] Address [address] [place] [address] Care Team Providers Name Role Phone Unavailable Primary Care Provider Unavailable Encounter Details Date Type Department Care Team Description 11/05/2015 Hospital Encounter HX [facility] PMTR Contreras Zhang M.D. [address] [place] [address], [address] [place] [address] (Wo rk) Social History Tobacco [...] or relatives? How often do you attend sabianism or Patient refused 2020 evangelical services? Do you belong to any clubs or Patient refused 03/11/2020 organizations such as sabianism groups, unions, fraternal or athletic groups, or [...] encounter Procedure Notes Sohail Zhang M.D. - 11/05/2015 12:00 AM CDT 1EMG EMG BONE DRIER Sohail Zhang MD ([phone]) REFERRED BY Dr. Hardy Mills REFERRED FOR Ms. Barclay is a very pleasant 65-year-old female who has a known right femoral neuropathy following a right total hip arthroplasty performed on January 17, 2015. She is referred today for additional electrodiagnostic evaluation of the right femoral neuropathy. SUMMARY Prior to starting the procedure, the patients identity was verified, pertinent available records were reviewed, the nature of the procedure was explained, the appropriate sites of the exam were confirmed directly with the patient, and a pre-procedure pause was performed for final verification of all of the above. Please see nerve conduction and needle electromyographic examination summary data scanned into medical record. Previous electrodiagnostic studies performed on April 05, 2015 and July 30, 2015 were used for comparison purposes. Nerve conduction studies were not performed, as this study was performed specifically to re-evaluate the patient's known right femoral neuropathy. Needle examination of the right lower extremity showed fibrillation potentials and long duration complex motor unit potentials in the rectus femoris and vastus medialis. There are long duration motor unit potentials without fibrillation potentials in the iliopsoas. CLINICAL INTERPRETATION 1. 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 Compared to the most recent electrodiagnostic study performed on July 30, 2015, there has been continued improvement in the femoral neuropathy with evidence of reinnervation of the iliopsoas, rectus femoris and vastus medialis. The most marked findings continue to be in the vastus medialis, but the findings in the vastus medialis have improved as evidenced by less fibrillation potentials and evidence of more reinnervation occurring in the vastus medialis on today's study as compared to the most recent study performed on July 29 6. Sohail Zhang M.D./branden Electronically Signed By: SOHAIL ZHANG MD On: 11/17/2015 02:18 PM Modified by and Electronically Signed by: SOHAIL ZHANG MD On: 11/17/2015 02:18 PM Source: [facility] MHSDOLBEYNONRADSYS Document Id: [id number] documented in this encounter Miscellaneous Notes Telephone Encounter - Conversion, Historical Provider Ser - 11/11/2015 10:36 AM CDT *Phone Message Document Contains Addenda Addendum by ZOILA BORJA LPN on November 11, 2015 14:16:09 CDT Faxed From: ANN MARIE JAMES ( [employer]) To: Physical Medicine and Rehabilitation Staff; Sent: 11/11/2015 10:36:31 CDT Subject: *Phone Message Caller is: ( ) Patient ( ) Mother ( ) Father ( ) Spouse ( ) Daughter ( ) Son ( ) [facility] ErOsqzmdkjqp-[phone] ) Other: Physician: Vicente Patient MRN #: Reason for Call: Message: Ashanti is calling for results. Please call her back, thank you. Advice/Action: Source used: ( ) Verbalizes understanding [...] back cell phone number ( ) Source: [facility] POWERCHART Document Id: [id number] Miscellaneous - Sohail Zhang M.D. - 11/05/2015 1:07 PM CDT Ambulatory Patient Summary [address] [id number] Visit Information Name: NINGWILFREDEN [facility] Number: [id number] Current Date: 11/05/2015 13:07:07 Physicians Attending Provider: SOHAIL ZHANG MD Primary [...] the Following Medications: Medication list as of 11-05-15 13:07 Attention: If you have any medications at [...] Electronically Signed By: SOHAIL ZHANG MD Signed On:05-NOV-2015 11:57:39 Your Allergies & Intolerances Substance Reaction Symptoms [...] if you dont have one. Go to [email or web address] and click on Create Your Account. Then, follow the directions to complete the online form. Youll be asked for your [facility] number which you can find at the top of this document. Your Goals/Additional instructions: Source: [facility] POWERCHART Document Id: [id number] Miscellaneous - Sohail Zhang M.D. - 11/05/2015 1:07 PM CDT Ambulatory Discharge Medication List [address] [id number] Visit Information Name: NINGDUNIA [facility] Number: [id number] Visit Date: 11/05/2015 13:07:06 Attending Provider: SOHAIL ZHANG MD Primary Care Provider: PCP, ELSEWHERE NINGDUNIA has been given the following list of [...] the Following Medications: Medication list as of 11-05-15 13:07 Attention: If you have any medications at [...] Electronically Signed By: SOHAIL ZHANG MD Signed On:05-NOV-2015 11:57:39 Additional Information: Source: [facility] Tapru Document Id: [id number] Miscellaneous - Rosmery Aleman, LKayleighP.N. - 11/05/2015 11:06 AM CDT Adult Tierce Filler Intake/History Adult Tierce Filler Intake/History Entered On: 11/05/2015 11:09 CDT Performed On: 11/05/2015 11:06 CDT by ROSMERY ALEMAN LPN Intake Systolic Blood Pressure : 122 mmHg Diastolic Blood Pressure : 60 mmHg NIBP Mean : 81 mmHg BP Location : Right upper extremity Blood Pressure Cuff Size : Regular Actual Weight : 99.6 kg(Converted to: 219 lb 9 oz) Weight Source : Standing scale Dosing Weight Clinic : 99.6 kg ROSMERY ALEMAN LPN - 11/05/2015 11:06 CDT General Info Information Given By : Patient Languages : Thai Is Patient Female and 13-50 no hysterectomy : ROSMERY Fitzpatrick LPN - 11/05/2015 11:06 CDT Subjective Pain Symptoms : ROSMERY Fitzpatrick LPN - 11/05/2015 11:06 CDT Dependent Habits Exposure to Tobacco Smoke : Other: never Smoking Status : Never smoker Tobacco 2A : No Tobacco Use/Currently Using : No Tobacco Use/Last 30 Days : No Tobacco Use/Last 12 months : ROSMERY Fitzpatrick LPN - 11/05/2015 11:06 CDT [facility] Data[facility]ART Document Id: [id number] CDT!23 documented in this encounter Plan of Treatment Not on filedocumented as of this encounter Visit Diagnoses Not on filedocumented in this encounter
--- OUTSIDE RECORDS SUMMARY | 2021-12-29 13:04 | XMS_ITS | Clinical Summary ---
:1950 Author Organization [facility] [place] [address] Care Team Providers Name Role Phone Lyndsay Ashby MD Primary Care Provider [phone] Allergies Active Allergy Reactions Severity Noted Date Comments Amoxicillin Rash 04/14/2015 Animal Dander Runny Nose 12/08/2020 Mold Headache 12/08/2020 Medications Medication Sig Dispensed Refills Start Date End Date Status chlorthalidone Take 12.5-25 mg 2 10/26/2018 Active (HYGROTON) 25 mg tablet by mouth once daily. lisinopril (PRINIVIL; Take 20 mg by 2 10/12/2018 Active ZESTRIL) 20 mg tablet mouth once daily. omeprazole (PRILOSEC) 20 Take 20 mg by 3 09/23/2018 Active mg Delayed-Release mouth once daily capsule if needed. calcitonin salmon, 200 Inhale 1 [place] 8 11/13/2018 Active units per actuation, in the nasal (MIACALCIN, nostril(s) once FORTICAL) 200 daily. unit/actuation nasal spray multivit-minerals/folic Take 1 Tab by 0 04/14/2015 Active acid (DAILY GUMMIES mouth once ORAL) daily. multivitamin (MVI) Take 1 Tablet by 0 Active tablet mouth once daily. coenzyme q10 30 mg Take 30 mg by 0 Active capsule mouth. calcium 0 Active carbonate/vitamin D3 (CALTRATE 600 PLUS D ORAL) methylPREDNISolone Take by mouth as 21 Tablet 0 03/11/2021 Active (Medrol, Grzegorz,) 4 mg instructed per tabletIndications: DDD packaging. (degenerative disc disease), lumbar, Lumbar radiculopathy, Weakness of right hip rosuvastatin (CRESTOR) 5 take 1 tablet by 0 04/11/19 22 Active mg tablet mouth once every 3 days Active Problems No known active problems Family History Medical History Relation Name Comments Skin cancer Mother Relation Name Status Comments Mother Alive Social History Tobacco Use Types Packs/Day Years Used Date Never Smoker Smokeless Tobacco: Never Used Tobacco Cessation: Counseling Given: Yes Alcohol Use Standard Drinks/Week Comments Yes 0 (1 standard drink = 0.6 oz pure alcoho l) occas Alcohol Habits Answer Date Recorded How often do you have a drink containing alcohol? Not asked How many drinks containing alcohol do you have on a typical Not asked day when you are drinking? How often do you have six or more drinks on one occasion? No t asked Comment: occas 12/08/2020 Sex Assigned at Date Recorded Not on file Obstetrics History Last Filed Vital Signs Vital Sign Reading Time Taken Comments Blood Pressure 129/70 05/11/2021 10:05 AM CDT Pulse 64 05/11/2021 10:05 AM CDT Temperature 36.7 ??C (98.1 ??F) 05/11/2021 10:05 AM CDT Respiratory Rate - - Oxygen Saturation 97% 05/11/2021 10:05 AM CDT Inhaled Oxygen Concentration - - Weight 103.6 kg (228 lb 6.4 oz) 05/11/2021 10:05 AM wit h shoes CDT Height - - Body Mass Index - - Plan of Treatment Health Maintenance Due Date Last Done Comments Tdap 10/20/1962 Depression screening for age 12+ 1963 BMI (ht and wt on same day) for age 0910/20/1969 18+ Hepatitis C screening for age 18-79 10/20/1969 Tetanus booster 1971 Colonoscopy through age 75 10/20/1996 Lipids for age 45-75 10/20/1996 Mammogram for age 45-75 10/20/1996 Zoster (shingles) series for age 50+ 10/20/2001 (1 of 2) DEXA/DXA scan for age 65+ 10/20/2016 Medicare Wellness for age 65+ 10/20/2016 Pneumococcal series for age 65+ (1 - 10/20/2016 PCV) COVID-19 vaccine series (4 - Booster 02/10/2021 12/16/2020, 05/15/2020, for Moderna series) 04/17/2020 Influenza for age 65+ 10/15/2021 Results Not on filefrom Last 3 Months Insurance Payer Benefit Plan / Subscriber ID Effective Dates Phone Addre ss Type Group BLUE CROSS BLUE CROSS [id number] 2018-Present [address] MR MEDICARE [facility] [place] [id number] Care Teams Grey Roll Man Relationship Specialty Start Date End Date Lyndsay Ashby MD PCP - General Family Practice 05/11/211999 [place] [address]
--- NOTE | 2021-12-29 13:20 | CRLHL7_ITS ---
For Patients: As a result of the Cures Act, medical imaging exams and procedure reports are released immediately into your electronic medical record. You may view this report before your referring provider. If you have questions, please contact your health care provider. BILATERAL SCREENING MAMMOGRAM WITH COMPUTER-AIDED DETECTION AND TOMOSYNTHESIS TECHNIQUE: CC and MLO views were obtained. These mammographic images have been obtained using full-field digital technique. These mammographic images were interpreted with the benefit of computer-aided detection. Breast Tomosynthesis was used in this interpretation. COMPARISON FILM: 10/16/20, 07/20/19, 06/15/18. FINDINGS: There are scattered areas of fibroglandular density IMPRESSION: There is no radiographic evidence for malignancy. ASSESSMENT: BI-RADS Category 2: Benign RECOMMENDATION: Routine screening mammogram in 1 year. A lay language report of this examination will be provided to the patient. Kunal Bsuh M.D. Diagnostic Radiologist [email or web address] DONOVAN/ale Transcribed: 7:55 p.m. BENJI/Dictated by: Kunal Bush MD @ 12/30/2021 10:33:00 AM (Electronically Signed)
== END 2021-12-29 13:01 | disposition home or self-care (01) ==
LOC: MAMMO 13:01
PROVIDERS: PCP Family Medicine; Visit Provider Family Medicine
DX: Z12.31 Encounter for screening mammogram for malignant neoplasm of breast (principal)
CPT/HCPCS: 77063; 77067

== ENCOUNTER 2022-09-20 16:21 | Outpatient (CLI) | payer MEDICARE, SELFPAY | END 2022-09-20 16:22 | disposition home or self-care (01) | LOC: AMB 10-03 13:22 | PROVIDERS: PCP Family Medicine; Visit Provider Family Medicine | DX: R53.1 Weakness (principal) | CPT/HCPCS: A0998 ==

== ENCOUNTER 2022-11-22 08:18 | Outpatient (CLI) | payer MEDICARE, SELFPAY | END 2022-11-22 08:19 | disposition home or self-care (01) | LOC: NFLDREF 11-23 02:12 | PROVIDERS: PCP Family Medicine; Referring Provider Family Medicine; Visit Provider Family Medicine | DX: E78.5 Hyperlipidemia, unspecified (principal); R73.03 Prediabetes; I10 Essential (primary) hypertension; M85.80 Other specified disorders of bone density and structure, unspecified site | CPT/HCPCS: 80053; 80061; 82306 ==

== ENCOUNTER 2023-01-11 13:40 | Outpatient (CLI) | payer MEDICARE, SELFPAY ==
--- NOTE | 2023-01-11 14:00 | CRLHL7_ITS ---
For Patients: As a result of the Century Cures Act, medical imaging exams and procedure reports are released immediately into your electronic medical record. You may view this report before your referring provider. If you have questions, please contact your health care provider. BILATERAL SCREENING MAMMOGRAM WITH COMPUTER-AIDED DETECTION AND TOMOSYNTHESIS TECHNIQUE: CC and MLO views were obtained. These mammographic images have been obtained using full-field digital technique. These mammographic images were interpreted with the benefit of computer-aided detection. Breast Tomosynthesis was used in this interpretation. COMPARISON FILM: 12/29/21, 10/16/20, 07/20/19. FINDINGS: There are scattered areas of fibroglandular density IMPRESSION: There is no radiographic evidence for malignancy. ASSESSMENT: BI-RADS Category 2: Benign RECOMMENDATION: Routine screening mammogram in 1 year. A lay language report of this examination will be provided to the patient. Pro Hernandez M.D. Diagnostic/Nuclear Medicine Radiologist [email or web address] BENJI/Dictated by: Pro Hernandez MD @ 01/12/2023 9:26:00 AM (Electronically Signed)
== END 2023-01-11 13:41 | disposition home or self-care (01) ==
PROVIDERS: PCP Family Medicine; Visit Provider Family Medicine
DX: Z12.31 Encounter for screening mammogram for malignant neoplasm of breast (principal)
CPT/HCPCS: 77063; 77067

== ENCOUNTER 2023-07-27 14:15 | Outpatient (RCR) | payer MEDICARE, SELFPAY ==
--- NOTE | 2022-12-02 14:12 | PT.OPEX ---
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 It was more than a year before she could walk without assistance). Slowly getting weaker, then covid happened. Had a fall in September. She reports working in her yard and she twisted her ankle and fell. Had to have EMT to help her get up from the ground. No fractures or problems at hip or knee replacements. All walking (indoors and outside on uneven surfaces) and stairs are difficult. She uses a WB quad cane for stability. She lives alone, but have all required rooms on main floor. Laundry and freezer are on main level, so not manditory to go to the basement. More of a storage area. Still driving , able to do all shopping, cleaning, cooking on her own. Having some back pain, otherwise ok. Have some lumbar vert spurring and herniation. Able to walk about 30 min if shopping and holding the cart. Walking with cane about 20 min max on her own. Have done many exercises over the years. When working in the yard/ gardening I stopped doing my exercises. Have a 2.5 acre yard. Have people (friends and family) to help with yard work. Pain Comments LBP -06/23 Date of Last Physician Visit 11/26/22 Current Work Status Retired Precautions Treatment Precautions/Contraindications Hypertension, GERD, Obesity, Osteopenia, Arthritis, Rt CHRISTIE 01/2015, Rt TKR 10/2016 Weight Bearing Status Full Weight Bearing Therapy Limitations/Systems Review Vision Assessment Assessment/Impression 72 yo female with DX of Balance Deficit. She arrived to dept via IND ambulation with use 4 pronged quad cane. She ambulated in the dept without its use. She is unable to sit to stand without the use of UE on chair arms. She ambulates with reduced Rt knee flexion and slight hip circumduction. She can Dbl heel raise, but only elevating heels 2. Tandom stance with 2 between feet, average of 4 seconds. SLS 1 second max chas side. SPIVEY score of 45/56. She fatigued with 20 min of testing. She exhibits functional strength deficit involving trunk and chas LE. Pain was not increased to testing. She will benefit from continued skilled physical therapy to promote increased core stability, LE strength and endurance, fall prevention and safety to remain living IND in her own home. Thank you for this referral. Plan of Care Rehabilitation Potential Good Physical Therapy Goals In 4-6 visits, Zuleika will be able to report: 1. Increased ease of HEP execution, completing 10 home ex daily and with proper alignment, hold and reps. 2. Sit to stand from a 22 high chair with use of just one arm on chair arm 3. Dbl heel raise through full ankle range with increased calf strength 4. Walk/stand for an average of 30 min without AD In 10-12 visits, Zuleika will be able to report: 1. SPIVEY score increase from 45 /56 to at least 52/56 2. SLS average at least 5 seconds 3. Activity Specific Balance Confidence Scale (ABC) improved by at least 50% 4. Resume working out at [facility] at least 2X/Wk once DC from PT Coordination/Communication With Referral Source Treatment Plan/Direct Interventions Gait Training,Manual Therapy, Neuromuscular Re-ed,Self-Care/ Home Management,Therapeutic Activities,Therapeutic Exercises Frequency/Duration 1X/Wk X 10 visits Patient Will Be Discharged From Therapy Completion of LTG(s),Skills Plateau,Independent w/HEP, Independently Progressing Evaluation Billing Untimed Code Treatment Minutes 31 Complexity Moderate Certification Information Initial Certification Date 12/02/22 Ending Certification Date 02/26/23 Provider Signature Shows Agreement With POC & Medical Necessity Physician Signature & Date Requested Please Sign/Date Here Physician Comment/Change : Physician NPI Number #
--- NOTE | 2023-03-02 14:15 | PT.OPDNX ---
PT [place] Outpatient Daily Note PT [facility] Outpatient Daily Note Start: 12/02/22 07:20 Freq: Status: Active Protocol: Document 03/02/23 12:58 CLK (Rec: 03/02/23 13:57 CLK [id number]) E-signed By Milena Pierre, PT PT OP Daily Progress Note Visit Information Note Type Daily Note Visit Number [id number] Insurance Information Recert Due Date 05/27/23 Insurance Name Medicare B Medical Diagnosis Balance Deficit Treating Diagnosis Functional Strength Deficit Impaired Balance SPIVEY score of 44/56 - Fall Risk Referring MD Dr Lyndsay Ashby Subjective Subjective Have increased the time I use my new stationary bike from 5 min up to 8 min already. Low resistance of 3-4 until she is doing 10 min. Cont with balance/yoga class on computer /zoom. No falls, very careful with foot placement. Able to stand/walk a bit better with doing errands (easily 30 min now) Pain Comments LBP 2-06/23 Precautions Treatment Precautions/Contraindications Hypertension, GERD, Obesity, Osteopenia, Arthritis, Rt CHRISTIE 01/2015, Rt TKR 10/2016 Weight Bearing Status Full Weight Bearing Home Exercise Home Exercise Comments She has a packet from prior PT sessions, she has been slowly re-introducing them to HEP: -Bridge, LT Rot, pelvic rock, SLR, Hip flex isis stretch -Hamstring stretch, sit to stand -standing hip ABD, 4 step up, tandom stance, heel raise *HOLD bridge and perform semi FF position for hip EXT; both knee straight and knee bent. Can add resistance bands to legs. she states tasks we completed here that were helpful were step ups, balance on foam, external pertebations with gait belt, obstacle course, bike Objective Patient Instructed in Risks/Benefits Yes Therapeutic Exercise Therapeutic Exercise Minutes (minutes) 54 Therapeutic Exercise: To Restore Gym ex of: Functional Status -ex bar; step up/down 4 step X 20 reps chas (emphasis on eccentric) OR knee ext in sitting plate 1.5 X 2 sets of 10 reps with LE used equally -Leg press 100# X 30 reps -NuStep X 6 min level 4 (seat 11) -forward gait heel to toe 15 feet X 4 ex bar (light touch on bar vs aggressive hold) Repeat X 4 reps each direction on 10 foot foam beam 4 inches wide -side stepping at ex bar 15 feet X 4 (did not use arms on ex bar today) Then again on foam with light use of UE on ex bar -obstacle course stepping over 12 partitions X 4, X 4 reps. She was able to do this without knocking any over today, improved foot clearance . -cc rowing plate 3 X 30 reps -seated at cc UT Rot plate 2 X 30 reps chas (not today) -back ext machine 50# X 40 reps -seated knee EXT Chas 5# X 30 reps (emphasis on eccentric) -ham curl plate 4 X 30 reps -UBE X 4 min at level 3 (not today) -mini sit back squat with emphasis on slow eccentric contraction into squat X 2 set of 10 reps -standing on foam EO/, april in place, steady stance, 4' of tasks (not today) -hip EXT at cc plate 2 X 20 reps chas holding ex bar and chair back for support Manual Therapy Techniques Manual Therapy Techniques Gentle to mod- pressure STM/mm bending and CFFM at Rt lateral hip/hip flex, quad and ITB. End with long leg distraction. Gait & Stair Training Gait & Stair Training Comments Consider completing 6 min walking test next visit Treatment Minutes Timed Code Treatment Minutes 54 Total Treatment Time 54 Billing Units Therapeutic Exercise Units 4 Assessment/Impression Assessment/Impression She is performing about 40 min of ex in the morning ( improved from 20 min). Today was the 3rd PT visit in a row that she arrived to clinic, and ambulated the clinic, without use of any AD. She was able to step up and over 4 obsticles of 12 height without knocking them over, improved hip flex/control/foot clearance. Increased SLS to average of 5 sec chas. She cont to benefit from PT interventions. Plan of Care Physical Therapy Goals In 4-6 visits, Zuleika will be able to report: 1. Increased ease of HEP execution, completing 10 home ex daily and with proper alignment, hold and reps. MET 1A. As above but increased to 14 exercises of approximately 30-40 minutes. 2. Sit to stand from a 22 high chair with use of just one arm on chair arm. Partially MET. Able to demonstrate at the beginning of the session, not after 30 min of ex. 3. Dbl heel raise through full ankle range with increased calf strength. MET 4. Walk/stand for an average of 30 min without AD MET In 10-12 visits, Zuleika will be able to report: 1. SPIVEY score increase from 45 /56 to at least 52/56. Partially MET, increased to 50 /56 score 2. SLS average at least 5 seconds. MET 2A. Increased SLS to an average of 10 seconds to demonstrate reduced fall risk. 3. Activity Specific Balance Confidence Scale (ABC) improved by at least 50% 4. Resume working out at [facility] at least 2X/Wk once DC from PT Daily Plan of Care Continue per POC Daily Plan of Care Comments Progress with moderate level balance and gait skills Recertification Information Initial Certification Date 12/02/22 Recertification Start Date 03/02/23 Recertification Due Date 05/27/23 Reasons to Continue Skilled Therapy Client cont to exhibit LE and core weakness, imbalance issues and fall risk. She has improved in stand/walk tolerance (up to 30 min) and SLS from 1 to 5 seconds. She can not step up and over a 12 obsticle with improved hip FF , stability and foot clearance . Rehabilitation Potential Good Continued Plan of Care and Interventions 1X/Wk for functional strength activities and education, balance and gait skills to reduce risk of falling and remain living safely and independently in her own home. Provider Signature Shows Agreement With POC & Medical Necessity Physician Comment/Change Comment or Changes Physician NPI Number #
--- NOTE | 2023-05-20 07:41 | PT.OPDNX ---
[facility] Daily Note PT [facility] Daily Note Start: 12/02/22 07:20 Freq: Status: Active Protocol: Document 05/19/23 13:47 AMY (Rec: 05/19/23 16:54 AMY [id number]) E-signed By Gina Servin DPT PT OP Daily Progress Note Visit Information Note Type Daily Note,Recert/Progress Note Visit Number [id number] Insurance Information Recert Due Date 08/17/23 Insurance Name Medicare B Medical Diagnosis Balance Deficit Treating Diagnosis Core/hip/glut/LE weakness, impaired/unsteady gait, impaired balance, hx of falls Referring MD Dr Lyndsay Ashby Subjective Subjective Patient reports some increased soreness after last session. Mostly soreness in her LEs. States she was moving slowly the next several days. She went out to the [employer] with her book club, reports increased standing, walking for this event. [place] she had her same general soreness this past week from the increased activity. Trying to get her HEP in but admits she hasn't been doing them regularly, not getting them all in. She is trying to get a chart set up to help her get the HEP in a better routine. States she is feeling ok today, recovered from workout soreness from last week. Precautions Treatment Precautions/Contraindications Hypertension, GERD, Obesity, Osteopenia, Arthritis, Rt CHRISTIE 01/2015, Rt TKR 10/2016 Home Exercise Home Exercise Comments She has a packet from prior PT sessions, she has been slowly re-introducing them to HEP: -Bridge, LT Rot, pelvic rock, SLR, Hip flex isis stretch -Hamstring stretch, sit to stand -standing hip ABD, 4 step up, tandom stance, heel raise *HOLD bridge and perform semi FF position for hip EXT; both knee straight and knee bent. Can add resistance bands to legs. she states tasks we completed here that were helpful were step ups, balance on foam, external perturbations with gait belt, obstacle course, bike Objective Patient Instructed in Risks/Benefits Yes Therapeutic Exercise Therapeutic Exercise Minutes (minutes) 55 Therapeutic Exercise: To Restore Review of HEP Functional Status NuStep x 8 min, L5 HC stretching, HR, walk in place, hip abd R/L, hip/knee flex ROM/stretching using STMR Leg press - 80# 2 x 20, focus on quad control, slow activation to full knee ext seated hip add ball squeeze x 20 seated hip abd burgundy TB x 20 sit/stand with walk in place x 20 steps with 4# ankle wts. Repeated x 5. standing hip abd R/L 2 x 10 with 4# ankle wts, HR x 20 with ankle wts. 4 and 6 reciprocal stairs with railing for ascending, step to descending due to R LE weakness 6 step ups - fwd x 10 R/L sidestepping R/L, fwd/retro walking along grab bar, repeated with focus on increased step lengths Treatment Minutes Timed Code Treatment Minutes 55 Total Treatment Time 55 Billing Units Therapeutic Exercise Units 4 Assessment/Impression Assessment/Impression Patient has been seen in PT for 17 visits. She reports a recent set back with being sick for several weeks. She recovered from her lingering illness but reports general weakness and fatigue due to decreased activity and not getting her HEP in regularly. She returned to PT and is starting to make progress again with getting back on track with exercises in PT. She is trying to get back on track with her home exercises. Gait is slow, shuffling, unsteady without an AD. Patient has been using a quad cane when going out. Gait with quad cane is slow, with short step lengths, step to pattern at times. Stability is improved with an AD. Patient denies any falls since last September 2022. PT continues to focus on core/hip /glut/LE strengthening, gait training, balance training. Patient is doing well with PT sessions, gym program but reports some muscle soreness after PT sessions lasting for a couple of days. Ongoing weakness, fatigue noted with PT exercises. Rest breaks as needed. VC for increased step lengths with standing gait/ balance activities. Trial this session with a SPC with focus on increased step lengths and step through gait pattern. Patient has a SPC at home she can practice. Reviewed PT plan with patient regarding goal of improving strength, balance, gait and establishing a HEP and gym program that she can continue with at the [employer] [facility]. Patient is in agreement with plan. PT goals updated for patient's current status after recent decline in strength/endurance due to an extended illness. Recert/progress note will be sent to MD for signature and certification of additional PT visits for ongoing progress toward these PT goals. Patient would benefit from additional skilled PT for core /hip/glut/LE strengthening, balance/proprioception training, gait training, and establishment of HEP. Patient is in agreement with plan. Continue with PT POC. Plan of Care Physical Therapy Goals 1. Improve core/hip/glut strength and trunk stability over the next 6-8 weeks for improved functional mobility, improved balance, and improved gait with decreased risk of falls. 2. Improve Tinetti score to 20/28, TUG score of 10 seconds , and Cordero score to 50/56 over the next 6-8 weeks for improved safety with daily activities and decreased risk of falls with/without an AD. 3. Improve balance, coordination over the next 6-8 weeks for improved gait and safety and for ongoing amb indoors without an AD as able/safe to do so and use of cane outdoors. 4. Patient will not have any falls over the next 6-8 weeks with progression of PT activities and daily/home activities. 5. Patient will be I with HEP within 8 weeks for progression toward above goals, ongoing self improvements with strength/coordination/balance/ gait/safety, and for amb without an AD as safe/able for indoor activities and use of cane for outdoor activities. Daily Plan of Care Continue per POC Recertification Information Recertification Start Date 05/19/23 Recertification Due Date 08/17/23 Reasons to Continue Skilled Therapy see above note Rehabilitation Potential good Continued Plan of Care and Interventions 1-2x/week Provider Signature Shows Agreement With POC & Medical Necessity Physician Comment/Change Comment or Changes Physician NPI Number #
== END 2023-07-27 15:09 | disposition home or self-care (01) ==
PROVIDERS: PCP Family Medicine; Visit Provider Family Medicine
DX: R26.89 Other abnormalities of gait and mobility (principal); Z51.89 Encounter for other specified aftercare
CPT/HCPCS: 97110; 97140; 97162

== ENCOUNTER 2023-12-12 08:18 | Outpatient (CLI) | payer MEDICARE, SELFPAY ==
--- OUTSIDE RECORDS SUMMARY | 2023-12-13 14:08 | XMS_ITS | Referral Summary ---
Author Organization [facility] Address [address] [place] [address] Care Team Providers Care Map Mounter Name Role Phone Elsewhere, Pcp Primary Care Provider Unavailabl e Source Comments Patient records contain information from all sites at [facility]. For routine questions regarding patient records, call [phone] during business hours, M-F 8:00 AM - 5:00 PM Central Time. Record requests for emergency care only can be directed to [phone] at any time.[facility] Encounters Date Type Department Care Team Description 12/05/2023 1:30 PM CDT Office Visit Department of Dermatology in [address] [phone] Enriqueta Yu M.D. Nevi Multiple (Primary Dx) Discharge Disposition: Home or Self Care from Last 3 Months Allergies Active Allergy Reactions Criticality Noted Date Comments Amoxicillin Other (see comments) 04/14/2015 Animal Dander Other (see comments) 12/08/2020 Mold Headache 12/08/2020 Medications calcitonin, salmon, (MIACALCIN) 200 unit/actuation nasal spray 200 Units daily. 8 12/22/2017 Active chlorthalidone (HYGROTEN) 25 mg tablet Take 25 mg by mouth every other day. 2 01/10/2018 Active omeprazole (PriLOSEC) [address] capsule 3 01/10/2018 Active calcium carb/vit D3/minerals (CALCIUM-VITAMIN D ORAL) Take 1 tablet by mouth daily. 04/14/2015 Active multivitamin tablet Take 1 tablet by mouth daily. Active lisinopril (PRINIVIL,ZESTRI L) 20 mg tablet Take 20 mg by mouth every other day. 2 04/13/2018 Active co-enzyme Q-10 30 mg capsule Take 30 mg by mouth daily. Active Immunizations Name Administration Dates Next Due H1N1 All Forms 03/11/2009 HZV (ZOSTAVAX) 02/17/2012 Influenza, Injectable, Quadrivalent 01/13/2016 Influenza, Seasonal, Injectable 12/21/2012 Influenza, Unspecified 10/30/2008 PCV13 11/04/2016 PPSV23 11/10/2017 RZV (SHINGRIX) 04/03/2018 Td (Adult), adsorbed 03/01/2002,02/11/1993 Tdap 01/22/2011 influenza trivalent high dose (HD)(PF) ,11/24/2016 influenza trivalent vaccine (6 months and older) (PF) 01/04/2012,12/02/2010 Social History Tobacco Use Types Packs/Day Years Used Date Smoking Tobacco: Never Smokeless Tobacco: Never Social Connection and Isolat ion Panel [NHANES] Answer Date Recorded In a typical week, how many times do you talk on the phone with family, friends, or neighbors? More than three times a week 03/11/2020 How often do you get togethe r with friends or relatives? Patient declined 03/11/2020 How often do you attend chur or episcopal services? Patient declined 03/11/2020 Do you belong to any clubs o r organizations such as lutheran groups, unions, fraternal or athletic groups, or school groups? Patient declined 03/11/2020 How often do you attend meet ings of the clubs or organizations you belong to? Patient declined 03/11/2020 Are you , , di vorced, , never , or living with a partner? Never 03/11/2020 AUDIT-C Answer Date Recorded Q1: How often do you have a drink containing alc ohol? Monthly or less 03/11/2020 Average Number of Drinks Not on file 021 Frequency of Binge Drinking Not on file 02/15 [facility] [place] of Occupat ional Health - Occupational Stress Questionnaire Answer Date Recorded Do you feel stress - tense, restless, nervous, or anxious, or unable to sleep at night because your mind is troubled all the time - these days? To some extent 03/11/2020 Nutrition Answer Date Recorded Nutrition: EVOO Fat Source 13 09/10 Nutrition: Servings of Fruits/Vegetables per Day Not on file 09/11/2019 Dental Answer Date Recorded Dental: Regular Dentist Unknown 04/16/19 Education Answer Date Recorded What is the highest level of school you have completed or the highest degree you have received? 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 Gender Identity Female 10/02/2021 8:58 AM CDT Sexual Orientation Choose not to disclose 2021 8:58 AM CDT Last Filed Vital Signs Vital Sign Reading Time Taken Comments Blood Pressure 122/60 11/05/2015 11:06 AM CDT Pulse - - Temperature - - Respiratory Rate - - Oxygen Saturation - - Inhaled Oxygen Concentration - - Weight 99.6 kg (219 lb 9.3 oz) 11/05/2015 11:06 AM CDT Height - - Body Mass Index - - Plan of Treatment Upcoming Encounters Date Type Department Care Team (Late st Contact Info) Description 06/04/2024 1:45 PM CDT Office Visit Department of Dermatology in [address] [phone] Enriqueta Yu M.D. [address] [place] [address] Discharge Disposition: Home or Self Care Medical Devices Implanted Type Area Picker And Sorter Load And Unload Device Identifier Shelf Expiration Date Model / Serial / Lot Hip Implant Hip Implant Right: Hip Knee Implant Knee Implant Right: Knee Insurance [facility] Care Teams Map Mounter Relationship Specialty Start Date End Date Elsewhere, Pcp PCP - General Family Medicine 02/02/18
--- OUTSIDE RECORDS SUMMARY | 2023-12-13 14:08 | XMS_ITS | Clinical Summary ---
Author Organization [facility] Address [place], [place] [address] Care Team Providers Care Survey Compiler Name Role Phone Lyndsay Ashby MD Primary Care Provider + Allergies Active Allergy Reactions Criticality Noted Date Comments Amoxicillin Rash 04/14/2015 Animal Dander Runny Nose 12/08/2020 Mold Headache 12/08/2020 Medications Medication Sig Dispensed Refills Start Date End Date Status chlorthalidone (HYGROTON) 25 mg tablet Take 12.5-25 mg by mouth once daily. 2 10/26/2018 Active lisinopril (PRINIVIL; ZESTRIL) 20 mg tablet Take 20 mg by mouth once daily. 2 10/12/2018 Active omeprazole (PRILOSEC) 20 mg Delayed-Release capsule Take 20 mg by mouth once daily if needed. 3 09/23/2018 Active calcitonin salmon, 200 units per actuation, nasal (MIACALCIN, FORTICAL) 200 unit/actuation nasal spray Inhale 1 [place] in the nostril(s) once daily. 8 11/13/2018 Active multivit-minerals/f olic acid (DAILY GUMMIES ORAL) Take 1 Tab by mouth once daily. 04/14/2015 Active multivitamin (MVI) tablet Take 1 Tablet by mouth once daily. Active coenzyme q10 30 mg capsule Take 30 mg by mouth. Active calcium carbonate/vitamin D3 (CALTRATE 600 PLUS D ORAL) Active rosuvastatin (CRESTOR) 5 mg tablet take 1 tablet by mouth once every 3 days 04/11/2021 Active methylPREDNISolone (Medrol, Grzegorz,) 4 mg tabletIndications:D DD (degenerative disc disease), lumbar,Lumbar radiculopathy,Weakn ess of right hip Take by mouth as instructed per packaging. 21 Tablet 12/09/2022 Active Active Problems No known active problems Family History Medical History Relation Name Comments Skin cancer Mother Relation Name Status Comments Mother Alive Social History Tobacco Use Types Packs/Day Years Used Date Smoking Tobacco: Never Smokeless Tobacco: Never Tobacco Cessation:Counseling Given: Yes Alcohol Use Standard Drinks/Week Comments Yes 0 (1 standard drink = 0.6 oz pur e alcohol) occas Social Connections Answer Date Recorded Frequency of Communication with Friends and Fami ly Not on file 02/04/2021 Financial Resource Strain Answer Date R ecorded Difficulty of Paying Living Expenses Not on file 02/04/2021 Difficulty of Paying Living Expenses Not on file 02/04/2021 Sex and Gender Information Value Date Recorded Sex Assigned at Not on file Gender Identity Not on file Sexual Orientation Not on file Obstetrics History Last Filed Vital Signs Vital Sign Reading Time Taken Comments Blood Pressure 129/70 05/11/2021 10:05 AM CDT Pulse 64 05/11/2021 10:05 AM CDT Temperature 36.7 ??C (98.1 ??F) 05/11/2021 1 0:05 AM CDT Respiratory Rate - - Oxygen Saturation 97% 05/11/2021 10: 05 AM CDT Inhaled Oxygen Concentration - - Weight 103.6 kg (228 lb 6.4 oz) 022 10:05 AM CDT with shoes Height - - Body Mass Index - - Plan of Treatment Health Maintenance Due Date Last Done Comments Tdap 10/20/1962 Depression screening for age 12+ 1963 BMI (ht and wt on same day) for age 18+ 10/20/1969 Hepatitis C screening for age 18-79 10/20/1969 Tetanus booster 1971 Colonoscopy through age 75 10/20/1996 Lipids for age 45-75 10/20/1996 Mammogram for age 45-75 10/20/1996 Zoster (shingles) series for age 50+ (1 of 2) 10/20/2001 DEXA/DXA scan for age 65+ 10/20/2016 Medicare Wellness for age 65+ 10/20/2016 Pneumococcal series for age 65+ (1 of 1 - PCV) 10/20/2016 COVID-19 vaccine series ( season) 2023 12/16/2020, 05/15/2020, 04/17/2020 Influenza for age 65+ 10/16/2023 Care Teams Survey Compiler Relationship Specialty Start Date End Date Lyndsay Ashby MD [address] [place] [address] PCP - General Family Practice 05/11/21
--- OUTSIDE RECORDS SUMMARY | 2023-12-13 14:08 | XMS_ITS ---
Author Organization [facility] Address [address] [place] [address] Care Team Providers Care Down Filler Name Role Phone Unavailable Unavailable Unavailable Surgery Details Not on file Complications Check Surgery Details section. Procedure Estimated Blood Loss Check Surgery Details section. Procedure Findings Check Surgery Details section. Procedure Specimens Taken Check Surgery Details section.
--- OUTSIDE RECORDS SUMMARY | 2023-12-13 14:08 | XMS_ITS | Encounter Summary ---
Author Organization [facility] Address [address] [place] [address] Care Team Providers Care Secondary Education Professor Name Role Phone Elsewhere, Pcp Primary Care Provider Unavailabl e Reason for Referral * Outpatient (Routine) - Authorized Specialty Diagnoses / Procedures Referred By Kunal mendez Referred To Contact Dermatology Enriqueta Yu M.D. [address] [place] [address] Phone: tel: fax: [facility] Region Referral ID Status Reason Start Date Expiration Date V isits Requested Visits Authorized [id number] Authorized 12/05/2023 06/05/2025 1 1 Reason for Visit * Reason Comments Skin Check * Appointment Request (Routine) - Closed Specialty Diagnoses / Procedures Referred By Kunal mendez Referred To Contact Dermatology Referral ID Status Reason Start Date Expiration Date Visits Re quested Visits Authorized [id number] Closed 03/10/2023 03/09/2024 1 1 Encounter Details Date Type Department Care Team ([facility] st Contact Info) Description 12/05/2023 1:30 PM CDT Office Visit Department of Dermatology in [address] [phone] Enriqueta Yu M.D. [address] [place] [address] Deysi Garcia (Primary Dx) Discharge Disposition: Home or Self Care Social History Tobacco Use Types Packs/Day Years [...] How often do you attend chur or episcopalian services? 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 - 12/05/2023 1:30 PM CDT SUBJECTIVE CHIEF COMPLAINT / REASON FOR VISIT Recheck nevi x 2 HISTORY OF PRESENT ILLNESS Zuleika Chand is a pleasant 73 y.o. female who presents for a recheck nevi x 2 involving the leftdorsal wrist and right upper paraspinal back. The patient was last seen by me in Dermatology clinicon 12/07/22. She denies a personal history of skin cancer or family history for melanoma. Her mother has a history of a probable non-melanoma skin cancer previously. She uses sunscreen. She denies any new or changing lesions today. MEDICAL HISTORY Negative for skin cancer FAMILY HISTORY Negative for melanoma Probable non-melanoma skin cancer in mother OBJECTIVE PHYSICAL EXAMINATION General: Awake, alert, in no acute distress, and with appropriate affect. Skin: Limited skin exam done today. Examination of the left dorsal wrist reveals a 6 x 6 mm brown nevus with minimal asymmetry and minimally jagged borders. Examination of the right upper paraspinal back reveals a 4 x 3.5 mm brown nevus with slightly darker pigmentation at the 12 o'clock position but looks benign on clinical exam and dermoscopy. ASSESSMENT / PLAN #1 Left dorsal wrist and right upper paraspinal back: Benign nevi x 2 The ABCDE criteria for melanoma was reviewed with the patient. None of the patient's nevi reach theclinical threshold for biopsy. I recommend continued sun protection, self-skin examinations, and observation. Should any of the patient's nevi change in size, color, texture, or shape or develop symptoms such as itching or bleeding, I recommend an immediate return visit for reassessment. Follow up in 6 months for a recheck of the stated lesion(s) as well as a full skin cancer screening. PATIENT EDUCATION: Ready to learn. No apparent learning barriers were identified. Learning preferences include listening. Explained diagnosis and treatment plan; patient/guardian of patient expressed understanding of the content. By signing my name below, I, Nubia Sterling, attest that this documentation has been prepared underthe direction and in the presence of Enriqueta Yu M.D. Electronically Signed: patricio Crowder. 12/05/2023. 1:52 PM CDT. I, Enriqueta Yu M.D., personally performed the services described in this documentation. All medical record entries made by the scribe were at my direction and in my presence. I have reviewed the chart and discharge instructions (if applicable) and agree that the record reflects my personal performance and is accurate and complete. Enriqueta Yu M.D. Scribed for Enriqueta Yu M.D. by Nubia Sterling, on 12/05/2023, 1:58 PM CDT. documented in this encounter Plan of Treatment Upcoming Encounters Date Type Department Care Team (Late st Contact Info) Description 06/04/2024 1:45 PM CDT Office Visit Department of Dermatology in [address] [phone] Enriqueta Yu M.D. [address] [place] [address] Discharge Disposition: Home or Self Care Scheduled Referrals Name Type Priority Associated Diagnoses Order Schedule Dermatology office visit (clinic) Outpatient Referral Routine Expected: 06/04/2024, Expires: 03/06/2025 documented as of this encounter Visit Diagnoses Diagnosis Nevi Multiple- Primary documented in this encounter Care Teams Secondary Education Professor Relationship Specialty Start Date End Date Elsewhere, Pcp PCP - General Family Medicine 02/02/18 documented as of this encounter
--- OUTSIDE RECORDS SUMMARY | 2023-12-13 14:08 | XMS_ITS | Clinical Summary ---
Author Organization [facility] Address [address] [place] [address] Care Team Providers Care Maternity Floor Supervisor Name Role Phone Elsewhere, Pcp Primary Care Provider Unavailabl e Source Comments Patient records contain information from all sites at [facility]. For routine questions regarding patient records, call [phone] during business hours, M-F 8:00 AM - 5:00 PM Central Time. Record requests for emergency care only can be directed to [phone] at any time.[facility] Allergies Active Allergy Reactions Criticality Noted Date [...] Take 30 mg by mouth daily. Active Encounters Date Type Department Care Team Description 12/05/2023 1:30 PM CDT Office Visit Department of Dermatology in [address] [phone] Enriqueta Yu M.D. Nevi Multiple (Primary Dx) Discharge Disposition: Home or Self Care from Last 3 Months Immunizations Name Administration Dates Next Due H1N1 All Forms 03/11/2009 HZV (ZOSTAVAX) 02/17/2012 Influenza, Injectable, Quadrivalent 01/13/2016 Influenza, Seasonal, Injectable 12/21/2012 Influenza, Unspecified 10/30/2008 PCV13 11/04/2016 PPSV23 11/10/2017 RZV (SHINGRIX) 04/03/2018 Td (Adult), adsorbed 03/01/2002,02/11/1993 Tdap 01/22/2011 influenza trivalent high dose (HD)(PF) ,11/24/2016 influenza trivalent vaccine (6 months and older) (PF) 01/04/2012,12/02/2010 Family History Medical History Relation Name Comments [...] How often do you attend chur or mormonism services? 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 [address] [place] [phone] Discharge Disposition: Home or Self Care Health Maintenance Due Date Last Done Comments Bone Density Scan (Osteoporosis Screen) 1951 CT Colonography 1951 Cologuard 1951 Colonoscopy 1951 Colorectal Cancer Screening 1951 Creatinine Level (Kidney Function Test) 1951 FIT 1951 Fasting Glucose for Diabetes Screening 1951 Hepatitis C Screening 1951 Mammogram 1951 Potassium Level 1951 Sodium Level 1951 Depression Screening (Annual PHQ-2) 02/14/2023 Fall Risk Screen (Annual) 02/14/2023 Influenza Vaccine (#1) 2023 , 12/26/2021, 12/19/2020, Additional history exists DTaP,Tdap,and Td Vaccines (3 - Td or Tdap) 06/22/2028 06/22/2018, 01/22/2011, 03/01/2002, Additional history exists Pneumococcal vaccine (65+ years) Completed 11/10/2017, 11/04/2016 Zoster Vaccines Completed 06/22/2018, 03/17, 02/17/2012 COVID-19 Vaccine Completed 11/24/2023, 04/2022, 11/25/2021, Additional history exists IPV Vaccines Aged Out No longer eligi ble based on patient's age to complete this topic Medical Devices Implanted Type Area Biomedical Field Service Engineer Device Identifier Shelf Expiration Date Model / Serial / Lot Hip Implant Hip Implant Right: Hip Knee Implant Knee Implant Right: Knee Insurance [facility] Care Teams Maternity Floor Supervisor Relationship Specialty Start Date End Date Elsewhere, Pcp PCP - General Family Medicine 02/02/18
== END 2023-12-12 08:19 | disposition home or self-care (01) ==
LOC: NFLDREF 12-13 14:05
PROVIDERS: PCP Family Medicine; Referring Provider Family Medicine; Visit Provider Family Medicine
DX: Z00.00 Encounter for general adult medical examination without abnormal findings (principal); I10 Essential (primary) hypertension; E78.5 Hyperlipidemia, unspecified; R73.03 Prediabetes; M85.80 Other specified disorders of bone density and structure, unspecified site; E66.9 Obesity, unspecified
CPT/HCPCS: 80053; 80061; 82306

== ENCOUNTER 2024-01-11 13:51 | Outpatient (CLI) | payer MEDICARE, SELFPAY ==
--- OUTSIDE RECORDS SUMMARY | 2024-01-11 13:53 | XMS_ITS | Encounter Summary ---
Author Organization [facility] Address [address] [place] [address] Care Team Providers Care Manager Retirement Name Role Phone Elsewhere, Pcp Primary Care Provider Unavailabl e Reason for Referral * Outpatient (Routine) - Authorized Specialty Diagnoses / Procedures Referred By Kunal mendez Referred To Contact Dermatology Enriqueta Yu M.D. [address] [place] [address] Phone: tel: fax: [facility] Region Referral ID Status Reason Start Date Expiration Date V isits Requested Visits Authorized [id number] Authorized 12/05/2023 06/05/2025 1 1 Reason for Visit * Reason Comments Skin Check * Appointment Request (Routine) - Closed Specialty Diagnoses / Procedures Referred By Kunal mendez Referred To Contact Dermatology Referral ID Status Reason Start Date Expiration Date Visits Re quested Visits Authorized [id number] Closed 03/10/2023 03/09/2024 1 1 Encounter Details Date Type Department Care Team ([facility] st Contact Info) Description 12/05/2023 1:30 PM CDT Office Visit Department of Dermatology in [address] [phone] Enriqueta Yu M.D. [address] [place] [address] Deysi Garcia (Primary Dx) Discharge Disposition: Home [...] How often do you attend chur or judaism services? 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 [address] [place] [address] Discharge Disposition: Home or Self Care Scheduled Referrals Name Type Priority Associated Diagnoses Order Schedule Dermatology office visit (clinic) Outpatient Referral Routine Expected: 06/04/2024, Expires: 03/06/2025 documented as of this encounter Visit Diagnoses Diagnosis Nevi Multiple- Primary documented in this encounter Care Teams Manager Retirement Relationship Specialty Start Date End Date Elsewhere, Pcp PCP - General Family Medicine 02/02/18 documented as of this encounter
--- OUTSIDE RECORDS SUMMARY | 2024-01-11 13:53 | XMS_ITS ---
Author Organization [facility] Address [address] [place] [address] Care Team Providers Care State Editor Name Role Phone Unavailable Unavailable Unavailable Surgery Details Not on file Complications Check Surgery Details section. Procedure Estimated Blood Loss Check Surgery Details section. Procedure Findings Check Surgery Details section. Procedure Specimens Taken Check Surgery Details section.
--- OUTSIDE RECORDS SUMMARY | 2024-01-11 13:53 | XMS_ITS | Referral Summary ---
Author Organization [facility] Address [address] [place] [address] Care Team Providers Care Printing Manager Name Role Phone Elsewhere, Pcp Primary Care Provider Unavailabl e Source Comments Patient records contain information from all sites at [facility]. For routine questions regarding patient records, call [phone] during business hours, M-F 8:00 AM - 5:00 PM Central Time. Record requests for emergency care only can be directed to [phone] at any time.[facility] Encounters Date Type Department Care Team Description 12/05/2023 1:30 PM CDT Office Visit Department of Dermatology in [address] [phone] Enriqueta Yu M.D. Nevi Multiple (Primary Dx) [...] How often do you attend chur or sikhism services? 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 [address] [place] [address] Discharge Disposition: Home or Self Care Medical Devices Implanted Type Area Shelf Drier Operator Device Identifier Shelf Expiration Date Model / Serial / Lot Hip Implant Hip Implant Right: Hip Knee Implant Knee Implant Right: Knee Insurance [facility] Care Teams Printing Manager Relationship Specialty Start Date End Date Elsewhere, Pcp PCP - General Family Medicine 02/02/18
--- OUTSIDE RECORDS SUMMARY | 2024-01-11 13:53 | XMS_ITS | Clinical Summary ---
Author Organization [facility] Address [place], [place] [address] Care Team Providers Care Registered Associate Name Role Phone Lyndsay Ashby MD Primary [...] FORTICAL) 200 unit/actuation nasal spray Inhale 1 [place] in the nostril(s) once daily. 8 11/13/2018 [...] 65 05/11/2021 10:05 AM CDT Temperature 36.7 C (98.1 F) 05/11/2021 10:05 AM CDT Respiratory Rate - [...] Influenza for age 65+ 10/16/2023 Care Teams Registered Associate Relationship Specialty Start Date End Date Lyndsay Ashby MD [address] [place] [address] PCP - General Family Practice 05/11/21
--- OUTSIDE RECORDS SUMMARY | 2024-01-11 13:53 | XMS_ITS | Clinical Summary ---
Author Organization [facility] Address [address] [place] [address] Care Team Providers Care Data Librarian Name Role Phone Elsewhere, Pcp Primary Care Provider Unavailabl e Source Comments Patient records contain information from all sites at [facility]. For routine questions regarding patient records, call [phone] during business hours, M-F 8:00 AM - 5:00 PM Central Time. Record requests for emergency care only can be directed to [phone] at any time.[facility] Allergies Active Allergy Reactions Criticality Noted Date [...] Office Visit Department of Dermatology in [address] [phone] Enriqueta Yu M.D. Nevi Multiple [...] How often do you attend chur or hinduism services? 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 [address] [place] [phone] Discharge Disposition: Home or Self Care Health [...] this topic Medical Devices Implanted Type Area It Programmer Analyst Device Identifier Shelf Expiration Date Model / Serial / Lot Hip Implant Hip Implant Right: Hip Knee Implant Knee Implant Right: Knee Insurance [facility] Care Teams Data Librarian Relationship Specialty Start Date End Date Elsewhere, Pcp PCP - General Family Medicine 02/02/18
--- NOTE | 2024-01-11 14:00 | CRLHL7_ITS ---
For Patients: As a result of the Century Cures Act, medical imaging exams and procedure reports are released immediately into your electronic medical record. You may view this report before your referring provider. If you have questions, please contact your health care provider. DXA BONE MINERAL DENSITY STUDY Reason for exam: Osteopenia. Current height (in): 67. Weight (lb): 220. Menopause age: 58. Ethnicity: White. 1. Have you had a previous hip or vertebral fracture? No. 2. Have you had any fractures during your adult life which did not result from significant trauma (e.g., auto accident)? No. 3. Did either of your parents have a hip fracture? No. 4. Do you smoke? No. 5. Have you ever taken Glucocorticoids? No. 6. Do you have rheumatoid arthritis? No. 7. Do you have secondary osteoporosis? No. 8. Do you drink 3 or more alcoholic drinks per day? No. 9. Are you being treated for osteoporosis? No. 10. Have you ever taken any of the following medications: Actonel, Evista, Fosamax, Miacalcin, Reclast, Boniva, Forteo, HRT (i.e., estrogen/hormone therapy), Protelos, Prolia, Vitamin D, Calcium, other ??? please specify. ANSWER: Yes, Miacalcin (i.e., calcitronin), vitamin D, and calcium. 11. Do you have any of the following medical conditions: Anorexia or bulimia, asthma or emphysema, end stage renal disease, hyperparathyroidism, any seizure disorders, cancer, inflammatory bowel diseases, hysterectomy, other ??? please specify. ANSWER: No. 12. What was your maximum height (inches)? 68. 13. Do you perform weight bearing exercise regularly? No. 14. Do you regularly consume dairy products? Yes. 15. Do you drink caffeinated beverages? Yes. 16. At what age did your period start? 15. 17. Are you premenopausal? No. 18. How many full-term pregnancies have you had? 0. 19. Have you ever missed your period for more than 6 months in a row (not including or menopause)? No. TECHNIQUE: Bone mineral density study was performed using the [employer]. FINDINGS: The results of the study expressed as bone mineral density (BMD) are as follows: Lumbar spine L1 to L4: BMD: 0.882 g/cm2. T-score: -1.5. Z-score: 0.7 Neck Left: BMD: 0.542 g/cm2. T-score: -2.8. Z-score: -0.8 Total Left: BMD: 0.676 g/cm2. T-score: -2.2. Z-score: -0.6 IMPRESSION: Osteoporosis. *Comparison exams done prior to 07/2019 were performed on different unit, [employer]. COMPARISON: Compared with scan of 04/23/2021, the bone mineral density has increased by 1.0 percent at the spine and decreased by 10.2 percent at the hip. Compared with scan of 06/15/2018, the bone mineral density has increased by 0.3 percent at the spine and increased by 9.5 percent at the hip. Kunal Bush M.D. Diagnostic Radiologist [email or web address] DONOVAN/clarissa romo/Dictated by: Kunal Bush MD @ 01/13/2024 12:24:00 PM (Electronically Signed)
== END 2024-01-11 13:52 | disposition home or self-care (01) ==
LOC: RAD 13:51
PROVIDERS: PCP Family Medicine; Visit Provider Family Medicine
DX: M85.89 Other specified disorders of bone density and structure, multiple sites (principal); M81.0 Age-related osteoporosis without current pathological fracture
CPT/HCPCS: 77080

== ENCOUNTER 2024-03-09 13:55 | Outpatient (CLI) | payer MEDICARE, SELFPAY ==
--- NOTE | 2024-03-09 14:00 | CRLHL7_ITS ---
For Patients: As a result of the Century Cures Act, medical imaging exams and procedure reports are released immediately into your electronic medical record. You may view this report before your referring provider. If you have questions, please contact your health care provider. BILATERAL SCREENING MAMMOGRAM WITH COMPUTER-AIDED DETECTION AND TOMOSYNTHESIS TECHNIQUE: CC and MLO views were obtained. These mammographic images have been obtained using full-field digital technique. These mammographic images were interpreted with the benefit of computer-aided detection. Breast Tomosynthesis was used in this interpretation. Difficult to position CCs due to patient body habitus. COMPARISON FILM: 01/11/23, 12/29/21, 10/16/20. FINDINGS: There are scattered areas of fibroglandular density. IMPRESSION: There is no radiographic evidence for malignancy. ASSESSMENT: BI-RADS Category 2: Benign RECOMMENDATION: Routine screening mammogram in 1 year. A lay language report of this examination will be provided to the patient. Kunal Bush M.D. Diagnostic Radiologist [email or web address] SP/Dictated by: Kunal Bush MD @ 03/12/2024 11:44:00 AM (Electronically Signed)
== END 2024-03-09 13:56 | disposition home or self-care (01) ==
LOC: MAMMO 13:55
PROVIDERS: PCP Family Medicine; Visit Provider Family Medicine
DX: Z12.31 Encounter for screening mammogram for malignant neoplasm of breast (principal)
CPT/HCPCS: 77063; 77067

== ENCOUNTER 2024-03-14 08:35 | Outpatient (CLI) | payer MEDICARE, SELFPAY | END 2024-03-14 08:36 | disposition home or self-care (01) | LOC: NFLDREF 03-19 02:05 | PROVIDERS: PCP Family Medicine; Referring Provider Family Medicine; Visit Provider Family Medicine | DX: E78.5 Hyperlipidemia, unspecified (principal) | CPT/HCPCS: 80061 ==

== ENCOUNTER 2024-08-03 14:12 | Outpatient (CLI) | payer MEDICARE, SELFPAY | END 2024-08-03 14:13 | disposition home or self-care (01) | LOC: NFLDREF 14:14 | PROVIDERS: PCP Family Medicine; Visit Provider Family Medicine | DX: R10.11 Right upper quadrant pain (principal) | CPT/HCPCS: 80053 ==

== ENCOUNTER 2024-08-13 07:07 | Outpatient (CLI) | payer MEDICARE, SELFPAY ==
--- OUTSIDE RECORDS SUMMARY | 2024-07-10 11:15 | XMS_ITS | Encounter Summary ---
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 [address] [place] [address] Phone: tel: fax: [facility] Region Referral ID Status Reason Start Date Expiration Date Visits Re quested Visits Authorized [id number] Closed 06/11/2024 09/11/2025 1 1 Encounter Details Date Type Department Care Team (Latest Contact Info) Description 07/10/2024 11:15 AM CDT Procedure visit Department of Dermatology in [address] [phone] Enriqueta uY M.D. [address] [place] [phone] Squamous Cell Carcinoma In Situ (Primary Dx); Cancer Skin Squamous Cell Personal History Discharge Disposition: Home or Self Care Social History Tobacco Use Types Packs/Day Years Used Date Smoking Tobacco: Never Smokeless Tobacco: Never Alcohol Use Standard Drinks/Week Comments Yes 0 (1 standard drink = 0.6 oz pur e alcohol) a few times a year Education Answer Date Recorded What is the highest level of school you have completed or the highest degree you have received? 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 - 07/10/2024 11:15 AM CDT SUBJECTIVE CHIEF COMPLAINT / REASON FOR VISIT curettage & cryotherapy HISTORY OF PRESENT ILLNESS Zuleika Chand is a pleasant 73 y.o. female who presents curettage & cryotherapy. The patient was last seen by me in Dermatology clinic on 06/06/2024. At that visit a biopsy was done on the leftdorsal hand which resulted in a superficial squamous cell carcinoma. She presents today for treatment, no other concerns at this time. 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 FAMILY HISTORY Negative for melanoma Probable non-melanoma skin cancer in mother OBJECTIVE PHYSICAL EXAMINATION General: Awake, alert, in no acute distress, and with appropriate affect. Eyes: No scleral injection or icterus. No eyelid abnormalities. Lymph: No lower extremity edema. Skin: limited exam Examination of the Left dorsal hand reveals a well healed biopsy site with no infection that measures today at 1.2 cm x 1.1 cm ASSESSMENT / PLAN #1 Left dorsal hand: Curettage & cryotherapy Given the diagnosis of a superficial squamous cell carcinoma, we recommend definitive treatment with curettage & cryotherapy and the patient agreed to proceed. After explaining the procedure, discussing the associated risks, benefits, and alternatives, and obtaining verbal informed consent, the lesion(s) underwent treatment with curettage and cryotherapy inthe standard fashion in three different directions. Defect size: 1.9x1.8 cm Wound care was discussed. Patient offered educational materials. Return immediately if changes occur during monthly self-skin exam. Follow up in 6 month for a recheck of the curettage and cryotherapy site. Patient will follow up in [place] for continuing her dermatology care. PATIENT EDUCATION: Ready to learn. No apparent learning barriers were identified. Learning preferences include listening. Explained diagnosis and treatment plan; patient/guardian of patient expressed understanding of the content. By signing my name below, IMita, attest that this documentation has been prepared under the direction and in the presence of Enriqueta Yu M.D. Electronically Signed: patricio Reyez. 07/10/2024. 11:18 AM CDT. documented in this encounter Plan of Treatment Not on file documented as of this encounter Visit Diagnoses Diagnosis Squamous Cell Carcinoma In Situ- Primary Cancer Skin Squamous Cell Personal History documented in this encounter Care Teams Spring Repairer Helper Hand Relationship Specialty Start Date End Date Elsewhere, Pcp PCP - General Family Medicine 02/02/18 documented as of this encounter
--- NOTE | 2024-08-13 07:15 | CRLHL7_ITS ---
For Patients: As a result of the Century Cures Act, medical imaging exams and procedure reports are released immediately into your electronic medical record. You may view this report before your referring provider. If you have questions, please contact your health care provider. INDICATION: Right upper quadrant pain COMPARISON: none TECHNIQUE: Real time kennedy scale imaging and color Doppler analysis was performed of the right upper quadrant. FINDINGS: Liver echotexture is diffusely increased. Patchy areas of focal fatty sparing are noted. The liver measures 19.1 cm. Visualized IVC and aorta are normal. There is no evidence of ascites. Small echogenic and mobile gallstones are present within the gallbladder lumen measuring up to 1.1 cm. The gallbladder wall measures 1 mm in thickness. The common bile duct is of normal size and measures 6 mm in diameter at the level of the liane hepatis. The pancreas is not well visualized due to bowel gas. There is no evidence of a stone or hydronephrosis within the right kidney. The right kidney measures 11.5 cm in length. IMPRESSION: Hepatomegaly with diffuse hepatic steatosis. Cholelithiasis. Dictated by Kunal Bush MD @ 08/13/2024 8:25:05 AM (Electronically Signed)
--- OUTSIDE RECORDS SUMMARY | 2024-08-13 08:01 | XMS_ITS | Encounter Summary ---
Author Organization [facility] Address [address] [place] [address] Care Team Providers Care Communications Writer Name Role Phone Elsewhere, Pcp Primary Care Provider Unavailabl e Reason for Referral * Outpatient (Routine) - Closed Specialty Diagnoses / Procedures Referred By Kunal mendez Referred To Contact Dermatology Diagnoses Cancer Skin Squamous Cell Personal History Procedures Dermatology misc minor procedure Enriqueta Yu M.D. [address] [place] [address] Phone: tel: fax: [facility] Region Referral ID Status Reason Start Date Expiration Date Visits Re quested Visits Authorized [id number] Closed 06/11/2024 09/11/2025 1 1 Encounter Details Date Type Department Care Team (Late st Contact Info) Description 06/06/2024 Results Follow-Up Department of Dermatology in [place], [place] [address] [place] [phone] Enriqueta Yu M.D. 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 - 06/06/2024 5:08 PM CDT Left dorsal hand: SCC in Situ- [facility] the [facility] Mayela: Please send patient letter Kerry: Please schedule or curettage and cryotherapy within the next 4-6 weeks. Thanks documented in this encounter Plan of Treatment Scheduled Orders Name Type Priority Associated Diagnoses Orde r Schedule Dermatology misc minor procedure Dermatology Routine Cancer Skin Squamous Cell Personal History Expected: 07/10/2024, Expires: 09/10/2025 documented as of this encounter Visit Diagnoses Diagnosis Cancer Skin Squamous Cell Personal History- Primary documented in this encounter Care Teams Communications Writer Relationship Specialty Start Date End Date Elsewhere, Pcp PCP - General Family Medicine 02/02/18 documented as of this encounter
--- OUTSIDE RECORDS SUMMARY | 2024-08-13 08:01 | XMS_ITS | Clinical Summary ---
Author Organization [facility] Address [address] [place] [id number] Care Team Providers Care Capsule Filling Machine Operator Name Role Phone Lyndsay Ashby MD Primary Care Provider + Allergies Active Allergy Reactions Criticality Noted Date Comments Amoxicillin Rash 04/14/2015 Animal Dander Runny Nose 12/08/2020 Mold Headache 12/08/2020 Medications chlorthalidone (HYGROTON) 25 mg tablet Take 12.5-25 mg by mouth once daily. 2 9 Active lisinopril (PRINIVIL; ZESTRIL) 20 mg tablet Take 20 mg by mouth once daily. 2 9 Active omeprazole (PRILOSEC) 20 mg Delayed-Release capsule Take 20 mg by mouth once daily if needed. 3 9 Active calcitonin salmon, 200 units per actuation, nasal (MIACALCIN, FORTICAL) 200 unit/actuation nasal spray Inhale 1 [place] in the nostril(s) once daily. 8 9 Active multivit-minera ls/folic acid (DAILY GUMMIES ORAL) Take 1 Tab by mouth once daily. 6 Active multivitamin (MVI) tablet Take 1 Tablet by mouth once daily. Active calcium carbonate/vitam in D3 (CALTRATE 600 PLUS D ORAL) Active methylPREDNISol one (Medrol, Grzegorz,) 4 mg tabletIndicatio ns:Lumbar radiculopathy,R adicular pain of right lower extremity Take by mouth as instructed per packaging. 21 Tablet 4 Active Active Problems No known active problems Immunizations Immunization Administration Dates Next Due INFLUENZA, IIV3 PF (AGE >= 6 MO) 01/04/2012,11/14 Influenza A (H1N1), Inactivated 03/11/2009 Influenza RIV4 (Age 18+ Years) PRESERV FREE 03/2019,12/12/2018 Influenza Virus, Unspecified 10/30/2008 Influenza, High-dose Inactivated 12/14/2023,11/16,11/24/2016 Influenza, High-dose Quadriv alent Inactivated 12/17/2022,12/26/2021,12/19/2020 Influenza, IIV3 (Age >=3 years) 12/21/2012 Influenza, IIV4 11/21/2019,03/11/2009 Influenza, IIV4 (=>6mos) MDV 01/13/2016 Pneumococcal Poly,23-Valent (Pneumovax) 11/11/19 18 Pneumococcal conj 13-Valent (Prevnar 13) 017 Td (Age >=7 Years) 03/01/2002,02/11/1993 Td, Preservative Free (age >= 7 Years) 9 Tdap 01/22/2011 Zoster (Shingrix-RZV, recombinant) 06/22/2018, Zoster (Zostavax-ZVL, live) 02/17/2012 Family History Medical History Relation Name Comments [...] Paying Living Expenses Not on file 02/04/2021 Comments No Sex and Gender Information Value Date Recorded Sex Assigned at Not on file Legal Sex Female 9:53 AM REHAB 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 Gender Identity Not on file Sexual Orientation [...] Care Team (Late st Contact Info) Description 09/12/2024 1:00 PM CDT Office Visit [facility] [address] [place] [address] Alexandr Dos Santos MD [address] [place] [address] Health Maintenance Due Date Last Done Comments Depression screening for age 12+ 1963 BMI (ht and wt on same day) for age 18+ 10/20/1969 Hepatitis C screening for age 18-79 10/20/1969 Colonoscopy through age 75 10/20/1996 Lipids for age 45-75 10/20/1996 Mammogram for age 45-75 10/20/1996 DEXA/DXA scan for age 65+ 10/20/2016 Medicare Wellness for age 65+ 10/20/2016 COVID-19 vaccine series (2023- season) 2024 11/24/2023, 12/17/2022, 11/25/2021, Additional history exists RSV vaccine for adults or (1 - 1-dose 75+ series) 10/20/2026 Tetanus booster 06/22/2028 06/22/2018, 12/0 10/2010, 03/01/2002, Additional history exists Tdap Completed 01/22/2011 Pneumococcal series for age 50+ Completed 11/10/2017, 11/04/2016 Zoster (shingles) series for age 50+ Completed 06/22/2018, 04/03/2018, 02/17/2012 Influenza Vaccine Completed 12/14/2023, , 11/16/2019, Additional history exists Hepatitis B series for 19+ Aged Out N o longer eligible based on patient's age to complete this topic Insurance [employer] MEDICARE ADVANTAGE MR Care Teams Capsule Filling Machine Operator Relationship Specialty Start Date End Date Lyndsay Ashby MD [address] [place] [address] PCP - General Family Practice 05/11/21
--- OUTSIDE RECORDS SUMMARY | 2024-08-13 08:01 | XMS_ITS | Clinical Summary ---
Author Organization [facility] Address [address] [place] [address] Care Team Providers Care Sewer Line Photo Inspector Name Role Phone Elsewhere, Pcp Primary Care Provider Unavailabl e Source Comments Patient records contain information from all sites at [facility]. For routine questions regarding patient records, call [phone] during business hours, M-F 8:00 AM - 5:00 PM Central Time. Record requests for emergency care only can be directed to [phone] at any time.[facility] Allergies Active Allergy Reactions Criticality Noted [...] Take 30 mg by mouth daily. Active ezetimibe (Zetia) 10 mg tablet Take 1 tablet by mouth daily. 03/28/2024 Active Encounters Date Type Department Care Team Description 07/10/2024 11:15 AM CDT Procedure visit Department of Dermatology in [address] [phone] Enriqueta Yu M.D. Squamous Cell Carcinoma In Situ (Primary Dx); Cancer Skin Squamous Cell Personal History Discharge Disposition: Home or Self Care 06/07/2024 Clinical Communication Department of Dermatology in [address] [phone] Enriqueta Yu M.D. 06/06/2024 Results Follow-Up Department of Dermatology in [address] [phone] Enriqueta Yu M.D. Dermatopathology 06/04/2024 2:15 PM CDT Ancillary Procedure Department of Dermatology 06/04/2024 1:45 PM CDT Office Visit Department of Dermatology in [address] [phone] Enriqueta Yu M.D. Nevi Multiple (Primary Dx); Neoplasm Uncertain Behavior Skin; Screening Examination Skin Cancer; Lentigo; Keratosis Seborrheic; Keratosis Seborrheic Inflamed Discharge Disposition: Home or Self Care from Last 3 Months Immunizations Immunization Administration Dates Next Due H1N1 All Forms 03/11/2009 HZV (ZOSTAVAX) 02/17/2012 Influenza, Injectable, Quadrivalent 01/13/2016 Influenza, Seasonal, Injectable 12/21/2012 Influenza, Unspecified 10/30/2008 PCV13 11/04/2016 PPSV23 11/10/2017 RZV (SHINGRIX) 04/03/2018 Td (Adult), adsorbed 03/01/2002,02/11/1993 Tdap 01/22/2011 influenza trivalent high dose (HD)(PF) ,11/24/2016 influenza trivalent vaccine (6 months and older) (PF) 01/04/2012,12/02/2010 Family History Medical History Relation Name Comments Other cancer Maternal Grandmother Amelia esophog us Skin cancer Mother 1 Breast cancer Mother's Sister Beulah Inflammator y Coronary artery disease Paternal Grandfather Wm R Relation Name Status Comments Maternal Grandmother Amelia Alive Mother 1 Mother 2 Brissa Mother's Sister Beulah Alive Paternal Grandfather Wm R Alive Social History Tobacco Use Types Packs/Day [...] Master's degree (e.g., MA, MS, Albertina, MEd, SLAB TRIPPER, WILLIAM) 03/11/2020 Comments No Sex and Gender Information Value Date Recorded Sex Assigned at Female 10/02/2021 8:58 AM CDT Legal Sex Female 10:08 PM SERVICE PROVIDER Gender Identity Female 10/02/2021 8:58 AM CDT [...] Scan (Osteoporosis Screen) 1951 CT Colonography 1950 Colonoscopy 1950 Creatinine Level (Kidney Function Test) 1951 FIT 1951 Fasting Glucose for Diabetes Screening 1950 Hepatitis C Screening 1950 Mammogram 1950 Potassium Level 1950 Sodium Level 1950 Depression Screening (Annual PHQ-2) 02/15/2024 Fall Risk Screen (Annual) 02/15/2024 COVID-19 Vaccine ( season) 2024 11/24/2023, 12/17/2022, 11/25/2021, Additional history exists Cologuard 01/05/2027 01/06/2024 Colorectal Cancer Screening 01/05/2027 DTaP,Tdap,and Td Vaccines (3 - Td or Tdap) 06/22/2028 06/22/2018, 01/22/2011, 03/01/2002, Additional history exists Pneumococcal vaccine (50+ years) Completed 11/10/2017, 11/04/2016 Zoster Vaccines Completed 06/22/2018, 03/17, 02/17/2012 Influenza Vaccine Completed 12/14/2023, , 12/26/2021, Additional history exists IPV Vaccines Aged Out No longer eligi ble based on patient's age to complete this topic Medical Devices Implanted Type Area Professor Of Oceanography Device Identifier Shelf Expiration Date Model / Serial / Lot Hip Implant Hip Implant Right: Hip Knee Implant Knee Implant Right: Knee Procedures Procedure Name Priority Date/Time Associated Diagnosis Comments DERMATOLOGY IMAGE EXAM Routine 2:15 PM CDT DERMATOPATHOLOGY Routine 06/04/2024 2:03 PM CDT Nevi Multiple Neoplasm Uncertain Behavior Skin Screening Examination Skin Cancer Lentigo Keratosis Seborrheic Keratosis Seborrheic Inflamed from Last 3 Months Results * hand, left dorsal hand 315-Dermatology Image Exam (06/04/2024 2:15 PM CDT) 06/04/2024 2:13 PM CDT Narrative [facility] - 06/04/2024 2:15 PM CDT This order has been created and auto-finalized to support the import of images acquired without order. The clinical documentation to support these images can be found on the encounter that produced images. us Provider Not In System IMG NON RAD IMAGING PROCE DURES Final Result [facility] NA * Dermatopathology (06/04/2024 2:03 PM CDT) 06/06/2024 10:56 AM CDT ECLR Report Electronically Signed By Hugo Yanes M.D. I verify that I have examined all relevant slides/material s for the specimen(s) and rendered or confirmed the diagnosis. 06/06/2024 10:56 AM CDT ECLR Gross Description Received labeled left dorsal hand is a 0.6 x 0.5 cm skin shave specimen. The skin surface is thickened and roughened. The specimen is bisected and entirely submitted in cassette A1. KLS 06/06/2024 10:56 AM CDT ECLR Specimen Source Left dorsal hand shave biopsy 06/06/2024 10:56 AM CDT ECLR Clinical Information r/o SCC in situ 06/06/2024 10:56 AM CDT ECLR Interpretation FINAL DIAGNOSIS Skin, left dorsal hand, shave biopsy: Squamous cell carcinoma in-situ. Digital imaging was used in the diagnostic assessment of this case. A portion of the testing process was performed at [facility] [employer] site [id number]. 06/06/2024 10:56 AM CDT ECLR Skin (Left Dorsal Hand) 06/04/2024 2:03 PM CDT Enriqueta Yu M.D. LAB PATH DERM ORDERABLES Fin al Result [facility] [address] [place] [id number], [facility] ECLR [address] [place] [phone] from Last 3 Months Insurance [facility] Care Teams Sewer Line Photo Inspector Relationship Specialty Start Date End Date Elsewhere, Pcp PCP - General Family Medicine 02/02/18
--- OUTSIDE RECORDS SUMMARY | 2024-08-14 02:25 | XMS_ITS | Clinical Summary ---
Author Organization [facility] Address [address] [place] [id number] Care Team Providers Care Ash Kier Boiler Name Role Phone Lyndsay Ashby MD Primary [...] FORTICAL) 200 unit/actuation nasal spray Inhale 1 [place] in the nostril(s) once daily. 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
== END 2024-08-13 07:08 | disposition home or self-care (01) ==
PROVIDERS: PCP Family Medicine; Visit Provider Family Medicine
DX: R10.11 Right upper quadrant pain (principal); R16.0 Hepatomegaly, not elsewhere classified; K76.0 Fatty (change of) liver, not elsewhere classified
CPT/HCPCS: 76705

== ENCOUNTER 2024-12-18 08:52 | Outpatient (CLI) | payer MEDICARE, SELFPAY | END 2024-12-18 08:53 | disposition home or self-care (01) | LOC: NFLDREF 12-20 16:20 | PROVIDERS: PCP Family Medicine; Referring Provider Family Medicine; Visit Provider Family Medicine | DX: E78.5 Hyperlipidemia, unspecified (principal); M85.89 Other specified disorders of bone density and structure, multiple sites; R73.03 Prediabetes | CPT/HCPCS: 80053; 80061; 82306 ==